=== PATIENT | female | born 1985 | race Hispanic/Latino ===

== ENCOUNTER 2020-05-23 10:45 | Emergency (ER) | payer OTHER, SELFPAY ==
--- OUTSIDE RECORDS SUMMARY | 2020-05-23 10:48 | XMS REPORT | Continuity of Care Document ---
:1985 Author Organization [facility] t Address [address] [place] [address] Care Team Providers Name Role Phone Lab, Fam Pob I Attending Clinician Unavailable Nurse, Carlo Pob I Attending Clinician Unavailable Problems This patient has no known problems. Allergies, Adverse Reactions, Alerts This patient has no known allergies or adverse reactions. Medications This patient has no known medications. Procedures This patient has no known procedures. Encounters Start End Encounter Admission Attending Care Care Encounter Source Date/Time Date/Time Type Type Clinicians Facility Department ID 2019-11-22 2019-11-22 Laboratory Lab, [facility] [id number] 14:37:19 14:57:19 Only Fam Pob I Health [id number] [place] [id number] Professio [phone] nal [address] 2019-11-22 2019-11-22 Letter Nurse, [facility] [id number] 00:00:00 00:00:00 (Out) Fam Pob I Health [id number] Surgical [id number] Specialti [id number] 370 [place] Results This patient has no known results.
--- NOTE | 2020-05-23 11:22 | EDPHYS ---
Physician Documentation [facility] Name: Claudette De La Rosa Age: 35 yrs Sex: Female : 1985 Arrival Date: 05/23/2020 Time: 10:48 Bed 20 Private MD: ED Physician Felipe Raygoza HPI: 05/23 11:19 This 35 yrs old Female presents to ER via Ambulatory with complaints of Tooth pm1 Infection. 11:19 The patient presents with pain. The problem is located in the lower right second molar. pm1 Onset: The symptoms/episode began/occurred many months. Duration: The symptoms are continuous. Associated signs and symptoms: Pertinent negatives: dysphagia, fever, inability to eat. Severity of symptoms: in the emergency department the symptoms are actually worse. Patient has been seen by her dentist and referred to [facility] for management of her tooth. Historical: - Allergies: 11:00 Latex, Natural Rubber; ss - Home Meds: 11:00 None [Active]; ss - PMHx: 11:00 None; ss - PSHx: 11:00 Cholecystectomy; breast augmentation; abdominoplasty; ; ss - Immunization history:: Adult Immunizations up to date. - Social history:: Smoking status: Patient denies any tobacco usage or history of. ROS: 11:19 Constitutional: Negative for fever, chills, and weight loss. pm1 11:19 Cardiovascular: Negative for chest pain, palpitations, and edema, Respiratory: Negative for shortness of breath, cough, wheezing, and pleuritic chest pain, Abdomen/GI: Negative for abdominal pain, nausea, vomiting, diarrhea, and constipation, MS/Extremity: Negative for injury and deformity, Skin: Negative for injury, rash, and discoloration. 11:19 Neuro: Negative for headache, weakness, numbness, tingling, and seizure. 11:19 ENT: Positive for dental pain, Negative for sore throat, difficulty swallowing, difficulty handling secretions. Exam: 11:19 Constitutional: This is a well developed, well nourished patient who is awake, alert, pm1 and in no acute distress. Head/Face: Normocephalic, atraumatic. 11:19 Neck: Trachea midline, no thyromegaly or masses palpated, and no cervical lymphadenopathy. Supple, full range of motion without nuchal rigidity, or vertebral point tenderness. No Meningismus. 11:19 Skin: Warm, dry with normal turgor. Normal color with no rashes, no lesions, and no evidence of cellulitis. MS/ Extremity: Pulses equal, no cyanosis. Neurovascular intact. Full, normal range of motion. 11:19 ENT: Posterior pharynx: is normal, no acute changes, Dental exam: dental caries, that is moderate, specifically in the lower right second molar (#31), gum swelling, not appreciated. 11:19 Cardiovascular: Exam negative for acute changes, Rate: normal, Rhythm: regular, Pulses: no pulse deficits are appreciated. 11:19 Respiratory: Exam negative for acute changes, respiratory distress, shortness of breath. 11:19 Neuro: Exam negative for acute changes, Orientation: is normal, Mentation: is normal, Motor: is normal, moves all fours. Vital Signs: 10:58 BP 139 / 78; Pulse 82; Resp 14; Temp 98.0(TE); Pulse Ox 100% on R/A; Weight 96.16 kg; ss Height 5 ft. 4 in. (162.56 cm); Pain 7/10; 10:58 Body Mass Index 36.39 (96.16 kg, 162.56 cm) ss MDM: 11:10 Patient medically screened. pm1 11:19 Data reviewed: vital signs. Counseling: I had a detailed discussion with the patient pm1 and/or guardian regarding: the historical points, exam findings, and any diagnostic results supporting the discharge/admit diagnosis, the need for outpatient follow up, for definitive care, a dentist, an oral maxilofacial specialist, to return to the emergency department if symptoms worsen or persist or if there are any questions or concerns that arise at home. Administered Medications: 11:26 Drug: traMADol 50 mg Route: PO; Disposition: 05/23/20 11:20 Discharged to Home. Impression: Dental pain. - Condition is Stable. - Discharge Instructions: Dental Pain. - Prescriptions for Augmentin 875- 125 mg Oral Tablet - take 1 tablet by ORAL route every 12 hours for 10 days; 20 tablet. Tramadol 50 mg Oral Tablet - take 1 tablet by ORAL route every 8 hours as needed; 12 tablet. - Medication Reconciliation Form, Thank You Letter, Antibiotic Education, Prescription Opioid Use, Work release form form. - Follow up: Emergency Department; When: As needed; Reason: Worsening of condition. Follow up: Private Physician; When: 2 - 3 days; Reason: Recheck today's complaints, Continuance of care, Re-evaluation by your physician. - Problem is new. - Symptoms have improved. Addendum: 05/24/2020 18:27 Co-signature as Attending Physician, Felipe Raygoza MD. m a2 Signatures: Nicole Edwards, RN RN Jhony Sepulveda NP PHOTOGRAMMETRIC TECH pm1 Felipe Raygoza MD MD ar2 Josi Mullins RN RN Corrections: (The following items were deleted from the chart) 05/23 11:41 11:20 05/23/2020 11:20 Discharged to Home. Impression: Dental pain. Condition is ah Stable. Forms are Medication Reconciliation Form, Thank You Letter, Antibiotic Education, Prescription Opioid Use. Follow up: Emergency Department; When: As needed; Reason: Worsening of condition. Follow up: Private Physician; When: 2 - 3 days; Reason: Recheck today's complaints, Continuance of care, Re-evaluation by your physician. Problem is new. Symptoms have improved. pm1
--- NOTE | 2020-05-23 11:22 | ER ---
Nurse's Notes [facility] Name: Claudette De La Rosa Age: 35 yrs Sex: Female : 1985 Arrival Date: 05/23/2020 Time: 10:48 Bed 20 Private MD: Diagnosis: Dental pain Presentation: 05/23 10:58 Chief complaint: Patient states: dental pain x 3 days. Coronavirus screen: Client ss denies travel out of the [place] in the last 14 days. Ebola Screen: Patient denies exposure to infectious person. Patient denies travel to an Ebola-affected area in the 21 days before illness onset. Initial Sepsis Screen: Does the patient meet any 2 criteria? No. Patient's initial sepsis screen is negative. Does the patient have a suspected source of infection? No. Patient's initial sepsis screen is negative. Risk Assessment: Do you want to hurt yourself or someone else? Patient reports no desire to harm self or others. Onset of symptoms was May 20, 2020. 10:58 Method Of Arrival: Ambulatory 10:58 Acuity: ROSHAN 4 ss Historical: - Allergies: 11:00 Latex, Natural Rubber; ss - Home Meds: 11:00 None [Active]; ss - PMHx: 11:00 None; ss - PSHx: 11:00 Cholecystectomy; breast augmentation; abdominoplasty; ; ss - Immunization history:: Adult Immunizations up to date. - Social history:: Smoking status: Patient denies any tobacco usage or history of. Screenin:29 Abuse screen: Denies threats or abuse. Nutritional screening: No deficits noted. Tuberculosis screening: No symptoms or risk factors identified. Fall Risk None identified. Assessment: 11:26 General: Appears uncomfortable, Behavior is calm, cooperative, appropriate for age. Pain: Complains of pain in lower right second molar Pain radiates to right ear Pain currently is 7 out of 10 on a pain scale. Quality of pain is described as aching, stabbing, piercing, Pain began 2-3 days ago. Neuro: Level of Consciousness is awake, alert, obeys commands, Oriented to person, place, time, situation, Appropriate for age. Cardiovascular: Heart tones S1 S2 present Capillary refill < 3 seconds Patient's skin is warm and dry. Respiratory: Airway is patent Respiratory effort is even, unlabored, Respiratory pattern is regular. GI: No signs and/or symptoms were reported involving the gastrointestinal system. EENT: Poor dentition noted. Reports pain when swallowing. Derm: Skin is intact, is healthy with good turgor, Skin is pink, warm \T\ dry. Vital Signs: 10:58 BP 139 / 78; Pulse 82; Resp 14; Temp 98.0(TE); Pulse Ox 100% on R/A; Weight 96.16 kg; Height 5 ft. 4 in. (162.56 cm); Pain 7/10; 10:58 Body Mass Index 36.39 (96.16 kg, 162.56 cm) ED Course: 10:48 Patient arrived in ED. mr 10:51 Jh[facility]ulved[facility] pm1 10:59 Triage completed. 11:00 Arm band placed on right wrist. 11:03 Josi Mullins, RN is Primary Nurse. 11:20 Felipe Raygoza MD is Attending Physician. pm1 11:29 Patient has correct armband on for positive identification. Bed in low position. 11:29 No provider procedures requiring assistance completed. Patient did not have IV access ah during this emergency room visit. Administered Medications: 11:26 Drug: traMADol 50 mg Route: PO; Outcome: 11:20 Discharge ordered by . pm1 11:41 Discharged to home ambulatory. 11:41 Condition: good 11:41 Discharge instructions given to patient, Instructed on discharge instructions, Demonstrated understanding of instructions, follow-up care, medications. 11:41 Patient left the ED. Signatures: Judith LeachashNicole RN RN Jhony Sepulveda NP CLOTH HAULER pm1 Josi Mullins RN RN
[2020-05-23] MEDS ORDERED: TRAMADOL HCL 50 MG TAB ONE (11:40)
[2020-05-23 11:49] VITALS: BP 139/78; TEMP 98; O2SAT 100
== END 2020-05-23 11:41 | disposition home or self-care (01) ==
LOC: ER 10:45
DX: K08.89 Other specified disorders of teeth and supporting structures (principal); Z91.040 Latex allergy status
CPT/HCPCS: 99283

== ENCOUNTER 2020-06-05 16:41 | Emergency (ER) | payer OTHER ==
[2020-06-05 17:21] LABS: Urine Blood NEGATIVE (NEG); Urine Glucose NEGATIVE (NEG); Urine Protein NEGATIVE (NEG); Urine Specific Gravity 1.025 (1.005-1.030)
[2020-06-05 17:49] LABS: Absolute Lymphocytes (CBC) 2.2 K/uL (0.7-4.9); Basophils % 0.2 % (0-1.3); Lymphocytes % 26.9 % (15.3-44.8); MPV 8.8 fL (7.6-11.3); RBC Red Blood Cell Count 4.26 M/uL (3.86-4.86)
[2020-06-05 18:23] LABS: BUN Blood Urea Nitrogen 9 mg/dL (7-18); Bicarbonate 23 mmol/L (21-32); Glucose Level 90 mg/dL (74-106); HCG, Quantitative 4743 mIU/mL (1-3); Potassium 3.3 mmol/L (3.5-5.1); Sodium Level 141 mmol/L (136-145)
[2020-06-05] MEDS ORDERED: POTASSIUM CL SA 10 MEQ TAB PO ONE (18:46)
--- NOTE | 2020-06-05 19:26 | ER ---
Nurse's Notes [facility] Name: Claudette De La Rosa Age: 35 yrs Sex: Female : 1985 Arrival Date: 06/05/2020 Time: 16:45 Bed 14 Private MD: Diagnosis: Abdominal and pelvic pain;Less than 8 weeks gestation of Presentation: 06/05 16:57 Chief complaint: Patient states: Approximately 6 weeks . Abd pain for 2 days. ll1 G5, P3. LMP:04/21. Coronavirus screen: Client denies travel out of the [place] in the last 14 days. At this time, the client does not indicate any symptoms associated with coronavirus-19. Ebola Screen: Patient denies travel to an Ebola-affected area in the 21 days before illness onset. Initial Sepsis Screen: Does the patient meet any 2 criteria? HR > 90 bpm. No. Patient's initial sepsis screen is negative. Does the patient have a suspected source of infection? Yes: Acute abdominal pain. Risk Assessment: Do you want to hurt yourself or someone else? Patient reports no desire to harm self or others. Onset of symptoms was June 04, 2020. 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 - Social history:: Smoking status: Patient denies any tobacco usage or history of. Screenin:18 Abuse screen: Denies threats or abuse. Nutritional screening: No deficits noted. vg1 Tuberculosis screening: No symptoms or risk factors identified. Fall Risk No fall in past 12 months (0 pts). No secondary diagnosis (0 pts). IV access (20 points). Ambulatory Aid- None/Bed Rest/Nurse Assist (0 pts). Gait- Normal/Bed Rest/Wheelchair (0 pts) Mental Status- Oriented to own ability (0 pts). Total Worrell Fall Scale indicates No Risk (0-24 pts). Assessment: 17:16 General: Appears in no apparent distress. comfortable, Behavior is calm, cooperative. vg1 Pain: Complains of pain in right lower quadrant Pain currently is 2 out of 10 on a pain scale. Quality of pain is described as sharp, Is intermittent. Neuro: Level of Consciousness is awake, alert, obeys commands, Oriented to person, place, time, situation. Cardiovascular: Patient's skin is warm and dry. Respiratory: Airway is patent Respiratory effort is even, unlabored. GI: Bowel sounds present X 4 quads. Abd is soft and non tender X 4 quads. GI: Reports diarrhea, Patient currently denies nausea, vomiting. : No signs and/or symptoms were reported regarding the genitourinary system. EENT: No signs and/or symptoms were reported regarding the EENT system. Derm: Skin is intact, is healthy with good turgor. Musculoskeletal: Circulation, motion, and sensation intact. 18:16 Reassessment: Patient appears in no apparent distress at this time. No changes from vg1 previously documented assessment. Patient and/or family updated on plan of care and expected duration. Pain level reassessed. Patient is alert, oriented x 3, equal unlabored respirations, skin warm/dry/pink. Vital Signs: 16:57 BP 146 / 85; Pulse 98; Resp 17; Temp 99.0; Pulse Ox 100% ; Weight 98.43 kg; Height 5 ll1 ft. 3 in. (160.02 cm); Pain 3/10; 17:18 BP 130 / 74; Pulse 98; Resp 16; Pulse Ox 100% on R/A; vg1 18:00 BP 117 / 69; Pulse 80; Resp 16; Pulse Ox 100% on R/A; vg1 16:57 Body Mass Index 38.44 (98.43 kg, 160.02 cm) ll1 ED Course: 16:45 Patient arrived in ED. mr 16:51 Yanet [facility] F[facility]-C [facility]. kb 16:51 Luis Miguel Cunningham MD is Attending Physician. kb 16:59 Triage completed. ll1 16:59 Arm band placed on Patient placed in an exam room, on a stretcher. ll1 17:12 Keisha Valdivia, LETICIA is Primary Nurse. vg1 17:12 Urine collected: clean catch specimen, clear, kajal colored. Patient maintains SpO2 jp3 saturation greater than 95% on room air. 17:18 Patient has correct armband on for positive identification. Bed in low position. Call vg1 light in reach. 17:33 Initial lab(s) drawn, by me, sent to lab. Inserted saline lock: 20 gauge in left dh3 antecubital area, using aseptic technique. Blood collected. 19:41 No provider procedures requiring assistance completed. IV discontinued, intact, vg1 bleeding controlled, No redness/swelling at site. Pressure dressing applied. 20:19 US Transvaginal Ob In Process Unspecified. EDMS Administered Medications: 18:34 Drug: Potassium Chloride 20 mEq Route: PO; vg1 19:30 Follow up: Response: No adverse reaction vg1 19:44 Follow up: Response: No adverse reaction vg1 Point of Care Testing: Urine : 17:12 hCG Reading: Positive; Control Reading: Positive; jp3 Outcome: 19:25 Discharge ordered by . kb 19:41 Discharged to home ambulatory. vg1 19:41 Condition: stable 19:41 Discharge instructions given to patient, Instructed on discharge instructions, follow up and referral plans. Demonstrated understanding of instructions, follow-up care. 19:41 Patient left the ED. vg1 Signatures: Dispatcher [employer] EDMS Yanet Evans, LEADERSHIP PROGRAM INTERNSkylaC LEADERSHIP PROGRAM INTERN-Dougie Judith Leach, Annita 3 Alfred Bowers 3 Keisha Valdivia, RN RN vg1 Edilia Adrian RN RN ll1
--- NOTE | 2020-06-05 19:26 | EDPHYS ---
Physician Documentation [facility] Name: Claudette De La Rosa Age: 35 yrs Sex: Female : 1985 Arrival Date: 06/05/2020 Time: 16:45 Bed 14 Private MD: RA Physician Luis Miguel Cunningham HPI: 06/05 18:27 This 35 yrs old Female presents to ER via Ambulatory with complaints of kb Abdominal Pain, 6wks . 18:29 The patient presents to the emergency department with abdominal pain, of the right kb lower quadrant. course: care: at a clinic, Leakage of Fluid: none appreciated, Ultrasound: the patient has not had an ultrasound, Risk/complications: no obvious risks or complications are appreciated. Previous pregnancies: the patient has never been . Associated signs and symptoms: Pertinent positives: abdominal pain, Pertinent negatives: chest pain, diarrhea, dysuria, fever, frequency, nausea, ruptured membranes, seizure, shortness of breath, vaginal bleeding, vaginal discharge, vomiting. The patient has not experienced similar symptoms in the past. The patient has not recently seen a physician. 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 - Social history:: Smoking status: Patient denies any tobacco usage or history of. ROS: 18:27 Constitutional: Negative for fever, chills, and weight loss, Cardiovascular: Negative kb for chest pain, palpitations, and edema, Respiratory: Negative for shortness of breath, cough, wheezing, and pleuritic chest pain, : Negative for injury, bleeding, discharge, and swelling, MS/Extremity: Negative for injury and deformity, Skin: Negative for injury, rash, and discoloration, Neuro: Negative for headache, weakness, numbness, tingling, and seizure. 18:27 Abdomen/GI: Positive for abdominal pain. Exam: 18:29 Constitutional: This is a well developed, well nourished patient who is awake, alert, kb and in no acute distress. Head/Face: Normocephalic, atraumatic. Chest/axilla: Normal chest wall appearance and motion. Nontender with no deformity. No lesions are appreciated. Cardiovascular: Regular rate and rhythm with a normal S1 and S2. No gallops, murmurs, or rubs. Normal PMI, no JVD. No pulse deficits. Respiratory: Lungs have equal breath sounds bilaterally, clear to auscultation and percussion. No rales, rhonchi or wheezes noted. No increased work of breathing, no retractions or nasal flaring. Abdomen/GI: Soft, non-tender, with normal bowel sounds. No distension or tympany. No guarding or rebound. No evidence of tenderness throughout. Skin: Warm, dry with normal turgor. Normal color with no rashes, no lesions, and no evidence of cellulitis. MS/ Extremity: Pulses equal, no cyanosis. Neurovascular intact. Full, normal range of motion. Neuro: Awake and alert, GCS 15, oriented to person, place, time, and situation. Cranial nerves II-XII grossly intact. Motor strength 5/5 in all extremities. Sensory grossly intact. Cerebellar exam normal. Normal gait. Vital Signs: 16:57 BP 146 / 85; Pulse 98; Resp 17; Temp 99.0; Pulse Ox 100% ; Weight 98.43 kg; Height 5 ll1 ft. 3 in. (160.02 cm); Pain 3/10; 17:18 BP 130 / 74; Pulse 98; Resp 16; Pulse Ox 100% on R/A; vg1 18:00 BP 117 / 69; Pulse 80; Resp 16; Pulse Ox 100% on R/A; vg1 16:57 Body Mass Index 38.44 (98.43 kg, 160.02 cm) ll1 MDM: 16:55 Patient medically screened. kb 18:27 Data reviewed: vital signs, nurses notes. Data interpreted: Pulse oximetry: on room air kb is 100 %. Interpretation: normal. 18:29 Counseling: I had a detailed discussion with the patient and/or guardian regarding: the kb historical points, exam findings, and any diagnostic results supporting the discharge/admit diagnosis, lab results, radiology results, the need for outpatient follow up, an OB/Gyne specialist, to return to the emergency department if symptoms worsen or persist or if there are any questions or concerns that arise at home. 06/05 17:00 Order name: Quantitative Hcg kb 06/05 17:00 Order name: Abo/rh Typing; Complete Time: 18:41 kb 06/05 17:00 Order name: Basic Metabolic Panel; Complete Time: 18:23 kb 06/05 17:00 Order name: CBC with Diff; Complete Time: 17:59 kb 06/05 17:00 Order name: HCG, Quantitative; Complete Time: 18:23 EDMS 06/05 17:20 Order name: Urine Dipstick--Ancillary (enter results) eb 06/05 16:59 Order name: Urine Test (obtain specimen); Complete Time: 17:13 kb 06/05 17:00 Order name: IV Saline Lock; Complete Time: 17:38 kb 06/05 17:00 Order name: Labs collected and sent; Complete Time: 17:38 kb 06/05 17:20 Order name: Urine --Ancillary (enter results) eb 06/05 17:20 Order name: Urine Dipstick-Ancillary; Complete Time: 17:29 EDMS 06/05 17:21 Order name: Urine --Ancillary; Complete Time: 17:29 EDMS 06/05 18:00 Order name: US Transvaginal Ob kb 06/05 17:00 Order name: NPO; Complete Time: 17:13 kb 06/05 17:00 Order name: Urine Dipstick-Ancillary (obtain specimen); Complete Time: 17:13 kb Administered Medications: 18:34 Drug: Potassium Chloride 20 mEq Route: PO; vg1 19:30 Follow up: Response: No adverse reaction vg1 19:44 Follow up: Response: No adverse reaction vg1 Point of Care Testing: Urine : 17:12 hCG Reading: Positive; Control Reading: Positive; jp3 Disposition: 06/06 14:41 Co-signature as Attending Physician, Luis Miguel Cunningham MD I agree with the assessment and tatum plan of care. Disposition: 06/05/20 19:25 Discharged to Home. Impression: Abdominal and pelvic pain, Less than 8 weeks gestation of . - Condition is Stable. - Discharge Instructions: First Trimester of , Rsor-vp-Niwl. - Medication Reconciliation Form, Thank You Letter, Antibiotic Education, Prescription Opioid Use form. - Follow up: Emergency Department; When: As needed; Reason: Worsening of condition. Follow up: Private Physician; When: 2 - 3 days; Reason: Recheck today's complaints, Continuance of care, Re-evaluation by your physician. Signatures: Dispatcher [employer] Yanet Vallecillo, LORENZO BROOKS-Luis Miguel Mcclure MD MD cha Garcia, Victoria, RN RN vg1 Edilia Adrian RN RN ll1 Corrections: (The following items were deleted from the chart) 06/05 19:41 19:25 06/05/2020 19:25 Discharged to Home. Impression: Abdominal and pelvic pain; Less vg1 than 8 weeks gestation of . Condition is Stable. Forms are Medication Reconciliation Form, Thank You Letter, Antibiotic Education, Prescription Opioid Use. Follow up: Emergency Department; When: As needed; Reason: Worsening of condition. Follow up: Private Physician; When: 2 - 3 days; Reason: Recheck today's complaints, Continuance of care, Re-evaluation by your physician. kb
[2020-06-05 19:49] VITALS: TEMP 99; O2SAT 100
[2020-06-05 19:51] VITALS: BP 117/69
--- NOTE | 2020-06-05 20:34 | RAD REPORT ---
EXAM DESCRIPTION: US - Transvaginal OB - 06/05/2020 8:19 pm CLINICAL HISTORY: ABD CRAMPING, COMPARISON: OBSTETRICAL COMPLETE dated 03/22/2012 FINDINGS: A single gestational sac is seen within the uterus. The shape of the sac is within normal limits for gestational age. The sac is quite small with mean sac diameter of 9 mm correlating to 5 we eks 5 days gestational age. No yolk sac or embryo is detected. The maternal adnexa and ovaries are within normal limits. Normal Doppler blood flow was demonstrated to both ovaries. IMPRESSION: Small gestational sac is present in the uterus likely indicating IUP. No yolk sac or emb suhas is yet detected. Recommend correlation with HCG levels on a serial basis as well as follow-up pel ellis ultrasound in 10-12 days.
== END 2020-06-05 19:41 | disposition home or self-care (01) ==
LOC: ER 16:41
DX: O26.891 Other specified pregnancy related conditions, first trimester (principal); Z3A.01 Less than 8 weeks gestation of pregnancy; Z98.82 Breast implant status; Z91.040 Latex allergy status; Z91.048 Other nonmedicinal substance allergy status
CPT/HCPCS: 36415; 76817; 80048; 81003; 81025; 84702; 85025; 86900; 86901; 99284

== ENCOUNTER 2022-12-21 16:14 | Emergency (ER) | payer OTHER ==
[2022-12-21 16:46] LABS: Specific Gravity 1.024 (1.005-1.030)
[2022-12-21 16:50] LABS: Specific Gravity 1.024 (1.005-1.030); Urine Bacteria None Seen /HPF (<20); Urine Bilirubin NEGATIVE (Negative); Urine Blood Negative (Negative); Urine Clarity Clear (Clear); Urine Color Light-Yellow (Yellow); Urine Glucose NEGATIVE (Negative); Urine Mucus 1+ /HPF (None Seen); Urine Protein 1+ (Negative); Urine RBC <5 /HPF (None Seen); Urine Urobilinogen Normal (Normal); Urine pH 5.5 (5.0-7.0)
--- OUTSIDE RECORDS SUMMARY | 2022-12-21 16:50 | XMS REPORT | Continuity of Care Document ---
:1985 Author Organization [facility] t Address [address] [facility] [address] [place] [address] Care Team Providers Name Role Phone PCP, PATIENT DOES NOT HAVE A Primary Care Physician Unavaila binu Doctor Unassigned, [place] Attending Clinician Unavailable DEE DEE VILLALPANDO Attending Clinician Unavailable Dee Dee Villalpando MD Attending Clinician Unknown, Attending Attending Clinician Unavailable HILDA STANTON Attending Clinician Unavailable Hilda Stanton MD Attending Clinician FAITH JEFFERSON Attending Clinician Unavailable Amanda Alfonso Attending Clinician AMANDA HERNANDEZ Attending Clinician Unavailable RAMY GONZALES Attending Clinician Unavailable Ramy Gonzales PA-C Attending Clinician STONE MARRERO Attending Clinician Unavailable JACKELYN BENTON Attending Clinician Unavailable Sohail Ramey DO Attending Clinician Jackelyn [place] MD Attending Clinician 2, [facility] Attending Clinician Unavailable Steve Rivas MD Attending Clinician STEVE RIVAS Attending Clinician Unavailable Kathy Dutton Attending Clinician SCOTT DAVID Attending Clinician Unavailable Scott David MD Attending Clinician [phone] UNKNOWN, ATTENDING Attending Clinician [facility] Attending Clinician Unavailable Deidra Resendez Attending Clinician Shashi Joshi Attending Clinician DEIDRA SCOTT Attending Clinician Unavailable KATHY LANTIGUA Attending Clinician Unavailable Tarun Alvarez PA-C Attending Clinician Nurse, [facility] Attending Clinician Unavailable Jerod Oliva MD Attending Clinician RASHAWN GRIFFIN Attending Clinician Unavailable JEROD OLIVA Attending Clinician Unavailable DENISE ARELLANO Attending Clinician Unavailable Lab, [facility]ob I Attending Clinician Unavailable Denise Mishra Attending Clinician Nurse, [facility] Pob I Attending Clinician Unavailable JACKELYN BENTON Admitting Clinician Unavailable Jackelyn [place] MD Admitting Clinician STEVE RIVAS Admitting Clinician Unavailable HILDA STANTON Admitting Clinician Unavailable Payers Payer Name Policy Type Policy Number Effective Date Expiration Date S 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 00:00: [address] Branch Obesity Obesity Disease Active Univers (BMI (BMI 3-07 ity of 30-39.9) 30-39.9) 00:00: [address] Branch Overdose Overdose Disease Active 2022-0 Unive rs 3-07 ity of 00:00: [place] 00 Medical Branch Hypokalemi Hypokalemi Disease Active U nivers a a 3-07 ity of 00:00: [place] [facility] Depression Depression Disease Active U nivers 3-07 ity of 00:00: [place] [facility] Hepatitis Hepatitis Disease Active Uni vers C virus C virus 3- [place] without 00 [place] hepatic hepatic Branch coma, coma, unspecifie unspecifie d d chronicity chronicity Allergies, Adverse Reactions, Alerts Allergy Allergy Status Severity Reaction(s) Onset Inactive Treating Comm ents Source Name Type Date Date Clinician Latex Propensi Active Rash Univers ty to 2-10 ity of adverse 00:00: [place] reaction 00 Medical s Branch LATEX DRUG Active Rash Univers INGREDI 2-10 ity of 00:00: [place] 00 Medical [place] Social History Social Habit Start Date Stop Date Quantity Comments Source Exposure to 2022-09-23 2022-10-03 Not sure [facility] SARS-CoV-2 00:00:00 07:09:00 [facility] (event) [place] Alcohol intake 2022-10-03 2022-10-03 Ex-drinker [facility] 00:00:00 00:00:00 (finding) [facility] Tobacco use and 2022-08-17 2022-08-17 Former smokeless Uni versity of exposure 00:00:00 00:00:00 tobacco user [facility] [place] Tobacco Comment 2022-08-17 2022-08-17 reports being a Univ ersity of 00:00:00 00:00:00 social smoker. [facility] not daily Branch Education 2021-06-27 2021-06-27 21 University of 00:00:00 00:00:00 [place] [facility] History of 2020-03-23 Cigarette Smoker Universi ty of tobacco use 00:00:00 [facility] Sex [birth year] Universit y of 00:00:00 00:00:00 [facility] Smoking Status Start Date Stop Date Source Ex-smoker 2022-08-17 00:00:00 2022-08-17 00:00:00 Universi ty of [place] [facility] Medications Ordered Filled Start Stop Current Ordering Indication Dosage Frequency Signature Comments Components Source Medication Medication Date Date Medication? Clinician (SIG) Name Name benzonatate Yes [id number] 200mg Take 2 Univers 100 mg 6-13 capsules ity of capsule 00:00: by mouth [place] 00 every 8 Medical (eight) Branch hours as needed for Cough. benzonatate Yes [id number] 200mg Take 2 Univers 100 mg 6-13 capsules ity of capsule 00:00: by mouth [place] 00 every 8 Medical (eight) Branch hours as needed for Cough. benzonatate Yes [id number] 200mg Take 2 Univers 100 mg 6-13 capsules ity of capsule 00:00: by mouth [place] 00 every 8 Medical (eight) Branch hours as needed for Cough. amoxicillin 2022- Yes [id number] 1{tbl} Take 1 Univers -clavulanat 6-13 06-21 tablet by it y of e 00:00: 04:59 mouth in [place] (AUGMENTIN) 00 :00 the Medical 875-125 mg morning Branch per tablet and 1 tablet in the evening. Do all this for 7 days. amoxicillin 2022- Yes [id number] 1{tbl} Take 1 Univers -clavulanat 6-13 06-21 tablet by it y of e 00:00: 04:59 mouth in [place] (AUGMENTIN) 00 :00 the Medical 875-125 mg morning Branch per tablet and 1 tablet in the evening. Do all this for 7 days. EULOGIO, 0 Yes Univer s 3-0.02 mg 5-19 ity of per tablet 00:00: Medical Branch LORYNA, 0 Yes Univer s 3-0.02 mg 5-19 ity of per tablet 00:00: Medical Branch LORYNA, 0 Yes Univer s 3-0.02 mg 5-19 ity of per tablet 00:00: Medical Branch RADHA tablet 2022-0 Yes Univer s 5-08 ity of 00:00: Medical Branch RADHA tablet 2022-0 Yes Univer s 5-08 ity of 00:00: Medical Branch RADHA tablet 0 Yes Univer s 5-08 ity of 00:00: [place] 00 Medical Branch sulfamethox 3-0 Yes [id number] 1{tbl} Take 1 Univers azole-trime 5-02 tablet by ity of thoprim 00:00: mouth in [place] (BACTRIM 00 the Medical DS) 800-160 morning Branc h mg per and 1 tablet tablet in the evening. sulfamethox 3-0 Yes [id number] 1{tbl} Take 1 Univers azole-trime 5-02 tablet by ity of thoprim 00:00: mouth in [place] (BACTRIM 00 the Medical DS) 800-160 morning Branc h mg per and 1 tablet tablet in the evening. sulfamethox 2023-0 Yes [id number] 1{tbl} Take 1 Univers azole-trime 5-02 tablet by ity of thoprim 00:00: mouth in [place] (BACTRIM 00 the Medical DS) 800-160 morning Branc h mg per and 1 tablet tablet in the evening. sulfamethox 2022-0 Yes [id number] 1{tbl} Take 1 Univers azole-trime 5-02 tablet by ity of thoprim 00:00: mouth in [place] (BACTRIM 00 the Medical DS) 800-160 morning Branc h mg per and 1 tablet tablet in the evening. sulfamethox 2021- No [id number] 1{tbl} Take 1 Univers azole-trime 6-17 06-25 tablet by it y of thoprim 00:00: 04:59 mouth 2 [place] (BACTRIM 00 :00 (two) Medical DS) 800-160 times Branch mg per daily for tablet 7 days. QUEtiapine 2021- No [id number] 25mg Take 1 Univers 25 mg 3-11 04-11 tablet by ity of tablet 00:00: 04:59 mouth at [place] 00 :00 bedtime Medical for 30 Branch days. Venlafaxine 2021-2021- No [id number] 75mg Take 1 Univers 75 mg 3-11 04-11 tablet by ity of tablet 00:00: 04:59 mouth [place] 00 :00 daily for Medical 30 days. Branch QUEtiapine 2021- No [id number] 25mg Take 1 Univers 25 mg 3-11 04-11 tablet by ity of tablet 00:00: 04:59 mouth at [place] 00 :00 bedtime Medical for 30 Branch days. Venlafaxine 2021- No [id number] 75mg Take 1 Univers 75 mg 3-11 04-11 tablet by ity of tablet 00:00: 04:59 mouth [place] 00 :00 daily for Medical 30 days. Branch acetaminoph 2020-04 Yes [id number] 650mg Take 1 Univers en (TYLENOL 0-16 tablet by ity of 8 HOUR) 650 00:00: mouth [place] mg CR 00 every 8 Medical tablet (eight) Branch hours as needed for Pain. ibuprofen 2020-04 Yes [id number] 800mg Take 1 U nivers 800 mg 0-16 tablet by ity of tablet 00:00: mouth [place] 00 every 6 Medical (six) Branch hours as needed for Pain (scale 1-3). acetaminoph 2020-04 Yes [id number] 650mg Take 1 Univers en (TYLENOL 0-16 tablet by ity of 8 HOUR) 650 00:00: mouth [place] mg CR 00 every 8 Medical tablet (eight) Branch hours as needed for Pain. ibuprofen 2020-04 Yes [id number] 800mg Take 1 U nivers 800 mg 0-16 tablet by ity of tablet 00:00: mouth [place] 00 every 6 Medical (six) Branch hours as needed for Pain (scale 1-3). acetaminoph 2020-04 Yes [id number] 650mg Take 1 Univers en (TYLENOL 0-16 tablet by ity of 8 HOUR) 650 00:00: mouth [place] mg CR 00 every 8 Medical tablet (eight) Branch hours as needed for Pain. ibuprofen 2020-04 Yes [id number] 800mg Take 1 U nivers 800 mg 0-16 tablet by ity of tablet 00:00: mouth [place] 00 every 6 Medical (six) Branch hours as needed for Pain (scale 1-3). acetaminoph 2020-04 Yes [id number] 650mg Take 1 Univers en (TYLENOL 0-16 tablet by ity of 8 HOUR) 650 00:00: mouth [place] mg CR 00 every 8 Medical tablet (eight) Branch hours as needed for Pain. ibuprofen 2020-04 Yes [id number] 800mg Take 1 U nivers 800 mg 0-16 tablet by ity of tablet 00:00: mouth [place] 00 every 6 Medical (six) Branch hours as needed for Pain (scale 1-3). acetaminoph 2020-04 Yes [id number] 650mg Take 1 Univers en (TYLENOL 0-16 tablet by ity of 8 HOUR) 650 00:00: mouth [place] mg CR 00 every 8 Medical tablet (eight) Branch hours as needed for Pain. ibuprofen 2020-04 Yes [id number] 800mg Take 1 U nivers 800 mg 0-16 tablet by ity of tablet 00:00: mouth [place] 00 every 6 Medical (six) Branch hours as needed for Pain (scale 1-3). acetaminoph 2020-04 Yes [id number] 650mg Take 1 Univers en (TYLENOL 0-16 tablet by ity of 8 HOUR) 650 00:00: mouth [place] mg CR 00 every 8 Medical tablet (eight) Branch hours as needed for Pain. ibuprofen 2020-04 Yes [id number] 800mg Take 1 U nivers 800 mg 0-16 tablet by ity of tablet 00:00: mouth [place] 00 every 6 Medical (six) Branch hours as needed for Pain (scale 1-3). acetaminoph 2020-04 Yes [id number] 650mg Take 1 Univers en (TYLENOL 0-16 tablet by ity of 8 HOUR) 650 00:00: mouth [place] mg CR 00 every 8 Medical tablet (eight) Branch hours as needed for Pain. ibuprofen 2020-04 Yes [id number] 800mg Take 1 U nivers 800 mg 0-16 tablet by ity of tablet 00:00: mouth [place] 00 every 6 Medical (six) Branch hours as needed for Pain (scale 1-3). acetaminoph 2020-04 Yes [id number] 650mg Take 1 Univers en (TYLENOL 0-16 tablet by ity of 8 HOUR) 650 00:00: mouth [place] mg CR 00 every 8 Medical tablet (eight) Branch hours as needed for Pain. ibuprofen 2020-04 Yes [id number] 800mg Take 1 U nivers 800 mg 0-16 tablet by ity of tablet 00:00: mouth [place] 00 every 6 Medical (six) Branch hours as needed for Pain (scale 1-3). acetaminoph 2020-04 Yes [id number] 650mg Take 1 Univers en (TYLENOL 0-16 tablet by ity of 8 HOUR) 650 00:00: mouth [place] mg CR 00 every 8 Medical tablet (eight) Branch hours as needed for Pain. ibuprofen 2020-04 Yes [id number] 800mg Take 1 U nivers 800 mg 0-16 tablet by ity of tablet 00:00: mouth [place] 00 every 6 Medical (six) Branch hours as needed for Pain (scale 1-3). acetaminoph 2020-04 Yes [id number] 650mg Take 1 Univers en (TYLENOL 0-16 tablet by ity of 8 HOUR) 650 00:00: mouth [place] mg CR 00 every 8 Medical tablet (eight) Branch hours as needed for Pain. ibuprofen 2020-04 Yes [id number] 800mg Take 1 U nivers 800 mg 0-16 tablet by ity of tablet 00:00: mouth [place] 00 every 6 Medical (six) Branch hours as needed for Pain (scale 1-3). acetaminoph 2020-04 Yes [id number] 650mg Take 1 Univers en (TYLENOL 0-16 tablet by ity of 8 HOUR) 650 00:00: mouth [place] mg CR 00 every 8 Medical tablet (eight) Branch hours as needed for Pain. ibuprofen 2020-04 Yes [id number] 800mg Take 1 U nivers 800 mg 0-16 tablet by ity of tablet 00:00: mouth [place] 00 every 6 Medical (six) Branch hours as needed for Pain (scale 1-3). acetaminoph 2020-04 Yes [id number] 650mg Take 1 Univers en (TYLENOL 0-16 tablet by ity of 8 HOUR) 650 00:00: mouth [place] mg CR 00 every 8 Medical tablet (eight) Branch hours as needed for Pain. ibuprofen 2020-04 Yes [id number] 800mg Take 1 U nivers 800 mg 0-16 tablet by ity of tablet 00:00: mouth [place] 00 every 6 Medical (six) Branch hours as needed for Pain (scale 1-3). acetaminoph 2020-04 Yes [id number] 650mg Take 1 Univers en (TYLENOL 0-16 tablet by ity of 8 HOUR) 650 00:00: mouth [place] mg CR 00 every 8 Medical tablet (eight) Branch hours as needed for Pain. ibuprofen 2020-04 Yes [id number] 800mg Take 1 U nivers 800 mg 0-16 tablet by ity of tablet 00:00: mouth [place] 00 every 6 Medical (six) Branch hours as needed for Pain (scale 1-3). acetaminoph 2020-04 Yes [id number] 650mg Take 1 Univers en (TYLENOL 0-16 tablet by ity of 8 HOUR) 650 00:00: mouth [place] mg CR 00 every 8 Medical tablet (eight) Branch hours as needed for Pain. ibuprofen 2020-04 Yes [id number] 800mg Take 1 U nivers 800 mg 0-16 tablet by ity of tablet 00:00: mouth [place] 00 every 6 Medical (six) Branch hours as needed for Pain (scale 1-3). acetaminoph 2020-04 Yes [id number] 650mg Take 1 Univers en (TYLENOL 0-16 tablet by ity of 8 HOUR) 650 00:00: mouth [place] mg CR 00 every 8 Medical tablet (eight) Branch hours as needed for Pain. ibuprofen 2020-04 Yes [id number] 800mg Take 1 U nivers 800 mg 0-16 tablet by ity of tablet 00:00: mouth [place] 00 every 6 Medical (six) Branch hours as needed for Pain (scale 1-3). acetaminoph 2020-04 Yes [id number] 650mg Take 1 Univers en (TYLENOL 0-16 tablet by ity of 8 HOUR) 650 00:00: mouth [place] mg CR 00 every 8 Medical tablet (eight) Branch hours as needed for Pain. ibuprofen 2020-04 Yes [id number] 800mg Take 1 U nivers 800 mg 0-16 tablet by ity of tablet 00:00: mouth [place] 00 every 6 Medical (six) Branch hours as needed for Pain (scale 1-3). acetaminoph 2020-04 Yes [id number] 650mg Take 1 Univers en (TYLENOL 0-16 tablet by ity of 8 HOUR) 650 00:00: mouth [place] mg CR 00 every 8 Medical tablet (eight) Branch hours as needed for Pain. ibuprofen 2020-04 Yes [id number] 800mg Take 1 U nivers 800 mg 0-16 tablet by ity of tablet 00:00: mouth [place] 00 every 6 Medical (six) Branch hours as needed for Pain (scale 1-3). azelastine Yes [id number] 1{spray Use 1 Univers 137 mcg 7-29 } [facility] in ity of (0.1 %) 00:00: each [place] nasal spray 00 nostril 2 Med ical (two) Branch times daily. Use in each nostril as directed azelastine 2020-0 Yes [id number] 1{spray Use 1 Univers 137 mcg 7-29 } [facility] in ity of (0.1 %) 00:00: each [place] nasal spray 00 nostril 2 Med ical (two) Branch times daily. Use in each nostril as directed azelastine 2020-0 Yes [id number] 1{spray Use 1 Univers 137 mcg 7-29 } [facility] in ity of (0.1 %) 00:00: each [place] nasal spray 00 nostril 2 Med ical (two) Branch times daily. Use in each nostril as directed azelastine 2020-0 Yes [id number] 1{spray Use 1 Univers 137 mcg 7-29 } [facility] in ity of (0.1 %) 00:00: each [place] nasal spray 00 nostril 2 Med ical (two) Branch times daily. Use in each nostril as directed azelastine 2020-0 Yes [id number] 1{spray Use 1 Univers 137 mcg 7-29 } [facility] in ity of (0.1 %) 00:00: each [place] nasal spray 00 nostril 2 Med ical (two) Branch times daily. Use in each nostril as directed azelastine 2020-0 Yes [id number] 1{spray Use 1 Univers 137 mcg 7-29 } [facility] in ity of (0.1 %) 00:00: each [place] nasal spray 00 nostril 2 Med ical (two) Branch times daily. Use in each nostril as directed azelastine 2020-0 Yes [id number] 1{spray Use 1 Univers 137 mcg 7-29 } [facility] in ity of (0.1 %) 00:00: each [place] nasal spray 00 nostril 2 Med ical (two) Branch times daily. Use in each nostril as directed azelastine 202-0 Yes [id number] 1{spray Use 1 Univers 137 mcg 7-29 } [facility] in ity of (0.1 %) 00:00: each [place] nasal spray 00 nostril 2 Med ical (two) Branch times daily. Use in each nostril as directed azelastine 2020-0 Yes [id number] 1{spray Use 1 Univers 137 mcg 7-29 } [facility] in ity of (0.1 %) 00:00: each [place] nasal spray 00 nostril 2 Med ical (two) Branch times daily. Use in each nostril as directed azelastine 2020-0 Yes [id number] 1{spray Use 1 Univers 137 mcg 7-29 } [facility] in ity of (0.1 %) 00:00: each [place] nasal spray 00 nostril 2 Med ical (two) Branch times daily. Use in each nostril as directed azelastine 2020-0 Yes [id number] 1{spray Use 1 Univers 137 mcg 7-29 } [facility] in ity of (0.1 %) 00:00: each [place] nasal spray 00 nostril 2 Med ical (two) Branch times daily. Use in each nostril as directed azelastine 2020-0 Yes [id number] 1{spray Use 1 Univers 137 mcg 7-29 } [facility] in ity of (0.1 %) 00:00: each [place] nasal spray 00 nostril 2 Med ical (two) Branch times daily. Use in each nostril as directed azelastine 2020-0 Yes [id number] 1{spray Use 1 Univers 137 mcg 7-29 } [facility] in ity of (0.1 %) 00:00: each [place] nasal spray 00 nostril 2 Med ical (two) Branch times daily. Use in each nostril as directed azelastine 2020-0 Yes [id number] 1{spray Use 1 Univers 137 mcg 7-29 } [facility] in ity of (0.1 %) 00:00: each [place] nasal spray 00 nostril 2 Med ical (two) Branch times daily. Use in each nostril as directed azelastine 2020-0 Yes [id number] 1{spray Use 1 Univers 137 mcg 7-29 } [facility] in ity of (0.1 %) 00:00: each [place] nasal spray 00 nostril 2 Med ical (two) Branch times daily. Use in each nostril as directed azelastine 2020-0 Yes [id number] 1{spray Use 1 Univers 137 mcg 7-29 } [facility] in ity of (0.1 %) 00:00: each [place] nasal spray 00 nostril 2 Med ical (two) Branch times daily. Use in each nostril as directed azelastine Yes [id number] 1{spray Use 1 Univers 137 mcg 7-29 } [facility] in ity of (0.1 %) 00:00: each [place] nasal spray 00 nostril 2 Med ical (two) Branch times daily. Use in each nostril as directed azelastine Yes [id number] 1{spray Use 1 Univers 137 mcg 7-29 } [facility] in ity of (0.1 %) 00:00: each [place] nasal spray 00 nostril 2 Med ical (two) Branch times daily. Use in each nostril as directed azelastine Yes [id number] 1{spray Use 1 Univers 137 mcg 7-29 } [facility] in ity of (0.1 %) 00:00: each [place] nasal spray 00 nostril 2 Med ical (two) Branch times daily. Use in each nostril as directed Yes [id number] 1{capsu Take 1 Univers 25-iron-fol 3-10 le} capsule by it y of ate 6-dha 00:00: mouth [place] 30 mg 00 daily. Medical iron-1mg Branch -200 mg Cap Yes [id number] 1{capsu Take 1 Univers 25-iron-fol 3-10 le} capsule by it y of ate 6-dha 00:00: mouth [place] 30 mg 00 daily. Medical iron-1mg Branch -200 mg Cap Yes [id number] 1{capsu Take 1 Univers 25-iron-fol 3-10 le} capsule by it y of ate 6-dha 00:00: mouth [place] 30 mg 00 daily. Medical iron-1mg Branch -200 mg Cap Yes [id number] 1{capsu Take 1 Univers 25-iron-fol 3-10 le} capsule by it y of ate 6-dha 00:00: mouth [place] 30 mg 00 daily. Medical iron-1mg Branch -200 mg Cap Yes [id number] 1{capsu Take 1 Univers 25-iron-fol 3-10 le} capsule by it y of ate 6-dha 00:00: mouth [place] 30 mg 00 daily. Medical iron-1mg Branch -200 mg Cap 2021-0 Yes [id number] 1{capsu Take 1 Univers 25-iron-fol 3-10 le} capsule by it y of ate 6-dha 00:00: mouth [place] 30 mg 00 daily. Medical iron-1mg Branch -200 mg Cap 2020-0 Yes [id number] 1{capsu Take 1 Univers 25-iron-fol 3-10 le} capsule by it y of ate 6-dha 00:00: mouth [place] 30 mg 00 daily. Medical iron-1mg Branch -200 mg Cap Yes [id number] 1{capsu Take 1 Univers 25-iron-fol 3-10 le} capsule by it y of ate 6-dha 00:00: mouth [place] 30 mg 00 daily. Medical iron-1mg Branch -200 mg Cap Yes [id number] 1{capsu Take 1 Univers 25-iron-fol 3-10 le} capsule by it y of ate 6-dha 00:00: mouth [place] 30 mg 00 daily. Medical iron-1mg Branch -200 mg Cap Yes [id number] 1{capsu Take 1 Univers 25-iron-fol 3-10 le} capsule by it y of ate 6-dha 00:00: mouth [place] 30 mg 00 daily. Medical iron-1mg Branch -200 mg Cap Yes [id number] 1{capsu Take 1 Univers 25-iron-fol 3-10 le} capsule by it y of ate 6-dha 00:00: mouth [place] 30 mg 00 daily. Medical iron-1mg Branch -200 mg Cap Yes [id number] 1{capsu Take 1 Univers 25-iron-fol 3-10 le} capsule by it y of ate 6-dha 00:00: mouth [place] 30 mg 00 daily. Medical iron-1mg Branch -200 mg Cap 0 Yes [id number] 1{capsu Take 1 Univers 25-iron-fol 3-10 le} capsule by it y of ate 6-dha 00:00: mouth [place] 30 mg 00 daily. Medical iron-1mg Branch -200 mg Cap 0 Yes [id number] 1{capsu Take 1 Univers 25-iron-fol 3-10 le} capsule by it y of ate 6-dha 00:00: mouth [place] 30 mg 00 daily. Medical iron-1mg Branch -200 mg Cap Yes [id number] 1{capsu Take 1 Univers 25-iron-fol 3-10 le} capsule by it y of ate 6-dha 00:00: mouth [place] 30 mg 00 daily. Medical iron-1mg Branch -200 mg Cap Yes [id number] 1{capsu Take 1 Univers 25-iron-fol 3-10 le} capsule by it y of ate 6-dha 00:00: mouth [place] 30 mg 00 daily. Medical iron-1mg Branch -200 mg Cap Yes [id number] 1{capsu Take 1 Univers 25-iron-fol 3-10 le} capsule by it y of ate 6-dha 00:00: mouth [place] 30 mg 00 daily. Medical iron-1mg Branch -200 mg Cap Yes [id number] 1{capsu Take 1 Univers 25-iron-fol 3-10 le} capsule by it y of ate 6-dha 00:00: mouth [place] 30 mg 00 daily. Medical iron-1mg Branch -200 mg Cap Yes [id number] 1{capsu Take 1 Univers 25-iron-fol 3-10 le} capsule by it y of ate 6-dha 00:00: mouth [place] 30 mg 00 daily. Medical iron-1mg Branch -200 mg Cap multivitami Yes Univer s n 1-01 ity of no.44/iron/ 00:00: [place] FA/dha 00 Medical (PRENATE Branch MINI ORAL) multivitami Yes Univer s n 1-01 ity of no.44/iron/ 00:00: [place] FA/dha 00 Medical (PRENATE Branch MINI ORAL) multivitami Yes Univer s n 1-01 ity of no.44/iron/ 00:00: [place] FA/dha 00 Medical (PRENATE Branch MINI ORAL) multivitami Yes Univer s n 1-01 ity of no.44/iron/ 00:00: [place] FA/dha 00 Medical (PRENATE Branch MINI ORAL) multivitami Yes Univer s n 1-01 ity of no.44/iron/ 00:00: [place] FA/dha 00 Medical (PRENATE Branch MINI ORAL) multivitami Yes Univer s n 1-01 ity of no.44/iron/ 00:00: [place] FA/dha 00 Medical (PRENATE Branch MINI ORAL) multivitami 0 Yes Univer s n 1-01 ity of no.44/iron/ 00:00: [place] FA/dha 00 Medical (PRENATE Branch MINI ORAL) multivitami 0 Yes Univer s n 1-01 ity of no.44/iron/ 00:00: [place] FA/dha 00 Medical (PRENATE Branch MINI ORAL) multivitami 0 Yes Univer s n 1-01 ity of no.44/iron/ 00:00: [place] FA/dha 00 Medical (PRENATE Branch MINI ORAL) multivitami 0 Yes Univer s n 1-01 ity of no.44/iron/ 00:00: [place] FA/dha 00 Medical (PRENATE Branch MINI ORAL) multivitami 0 Yes Univer s n 1-01 ity of no.44/iron/ 00:00: [place] FA/dha 00 Medical (PRENATE Branch MINI ORAL) multivitami 0 Yes Univer s n 1-01 ity of no.44/iron/ 00:00: [place] FA/dha 00 Medical (PRENATE Branch MINI ORAL) multivitami 0 Yes Univer s n 1-01 ity of no.44/iron/ 00:00: [place] FA/dha 00 Medical (PRENATE Branch MINI ORAL) multivitami 0 Yes Univer s n 1-01 ity of no.44/iron/ 00:00: [place] FA/dha 00 Medical (PRENATE Branch MINI ORAL) multivitami 0 Yes Univer s n 1-01 ity of no.44/iron/ 00:00: [place] FA/dha 00 Medical (PRENATE Branch MINI ORAL) multivitami 0 Yes Univer s n 1-01 ity of no.44/iron/ 00:00: [place] FA/dha 00 Medical (PRENATE Branch MINI ORAL) multivitami 0 Yes Univer s n 1-01 ity of no.44/iron/ 00:00: [place] FA/dha 00 Medical (PRENATE Branch MINI ORAL) multivitami 0 Yes Univer s n 1-01 ity of no.44/iron/ 00:00: [place] FA/dha 00 Medical (PRENATE Branch MINI ORAL) multivitami Yes Univer s n 1-01 ity of no.44/iron/ 00:00: [place] FA/dha 00 Medical (PRENATE Branch MINI ORAL) Immunizations Ordered Filled Immunization Date Status Comments [facility] e Immunization Name Name SARS-COV-2 COVID-19 2020-10-31 Completed Unive rsity of PFIZER VACCINE 00:00:00 [facility] Branch SARS-COV-2 COVID-19 2020-10-31 Completed Unive rsity of PFIZER VACCINE 00:00:00 [facility] SARS-COV-2 COVID-19 2020-10-31 Completed Unive rsity of PFIZER VACCINE 00:00:00 [facility] SARS-COV-2 COVID-19 2020-10-31 Completed Unive rsity of PFIZER VACCINE 00:00:00 [facility] SARS-COV-2 COVID-19 2020-10-31 Completed Unive rsity of PFIZER VACCINE 00:00:00 [facility] SARS-COV-2 COVID-19 2020-10-31 Completed Unive rsity of PFIZER VACCINE 00:00:00 [facility] SARS-COV-2 COVID-19 2020-10-31 Completed Unive rsity of PFIZER VACCINE 00:00:00 [facility] SARS-COV-2 COVID-19 2020-10-31 Completed Unive rsity of PFIZER VACCINE 00:00:00 [facility] SARS-COV-2 COVID-19 2020-10-31 Completed Unive rsity of PFIZER VACCINE 00:00:00 [facility] SARS-COV-2 COVID-19 2020-10-31 Completed Unive rsity of PFIZER VACCINE 00:00:00 [facility] SARS-COV-2 COVID-19 2020-10-31 Completed Unive rsity of PFIZER VACCINE 00:00:00 [facility] SARS-COV-2 COVID-19 2020-10-31 Completed Unive rsity of PFIZER VACCINE 00:00:00 [facility] SARS-COV-2 COVID-19 2020-10-31 Completed Unive rsity of PFIZER VACCINE 00:00:00 [facility] SARS-COV-2 COVID-19 2020-10-31 Completed Unive rsity of PFIZER VACCINE 00:00:00 [facility] SARS-COV-2 COVID-19 2020-10-31 Completed Unive rsity of PFIZER VACCINE 00:00:00 [facility] SARS-COV-2 COVID-19 2020-10-31 Completed Unive rsity of PFIZER VACCINE 00:00:00 [facility] SARS-COV-2 COVID-19 2020-10-31 Completed Unive rsity of PFIZER VACCINE 00:00:00 [facility] SARS-COV-2 COVID-19 2020-09-19 Completed Unive rsity of PFIZER VACCINE 00:00:00 [facility] SARS-COV-2 COVID-19 2020-09-19 Completed Unive rsity of PFIZER VACCINE 00:00:00 [facility] SARS-COV-2 COVID-19 2020-09-19 Completed Unive rsity of PFIZER VACCINE 00:00:00 [facility] SARS-COV-2 COVID-19 2020-09-19 Completed Unive rsity of PFIZER VACCINE 00:00:00 [facility] SARS-COV-2 COVID-19 2020-09-19 Completed Unive rsity of PFIZER VACCINE 00:00:00 [facility] SARS-COV-2 COVID-19 2020-09-19 Completed Unive rsity of PFIZER VACCINE 00:00:00 [facility] SARS-COV-2 COVID-19 2020-09-19 Completed Unive rsity of PFIZER VACCINE 00:00:00 [facility] SARS-COV-2 COVID-19 2020-09-19 Completed Unive rsity of PFIZER VACCINE 00:00:00 [facility] SARS-COV-2 COVID-19 2020-09-19 Completed Unive rsity of PFIZER VACCINE 00:00:00 [facility] SARS-COV-2 COVID-19 2020-09-19 Completed Unive rsity of PFIZER VACCINE 00:00:00 [facility] SARS-COV-2 COVID-19 2020-09-19 Completed Unive rsity of PFIZER VACCINE 00:00:00 [facility] SARS-COV-2 COVID-19 2020-09-19 Completed Unive rsity of PFIZER VACCINE 00:00:00 [facility] SARS-COV-2 COVID-19 2020-09-19 Completed Unive rsity of PFIZER VACCINE 00:00:00 [facility] SARS-COV-2 COVID-19 2020-09-19 Completed Unive rsity of PFIZER VACCINE 00:00:00 [facility] SARS-COV-2 COVID-19 2020-09-19 Completed Unive rsity of PFIZER VACCINE 00:00:00 [facility] SARS-COV-2 COVID-19 2020-09-19 Completed Unive rsity of PFIZER VACCINE 00:00:00 [facility] SARS-COV-2 COVID-19 2020-09-19 Completed Unive rsity of PFIZER VACCINE 00:00:00 [facility] Rho (d) Immune 2020-07-16 Completed University of Globulin 00:00:00 [facility] Rho (d) Immune 2020-07-16 Completed University of Globulin 00:00:00 [facility] Rho (d) Immune 2020-07-16 Completed University of Globulin 00:00:00 [facility] Rho (d) Immune 2020-07-16 Completed University of Globulin 00:00:00 [facility] Rho (d) Immune 2020-07-16 Completed University of Globulin 00:00:00 [facility] Rho (d) Immune 2020-07-16 Completed University of Globulin 00:00:00 [facility] Rho (d) Immune 2020-07-16 Completed University of Globulin 00:00:00 [facility] Rho (d) Immune 2020-07-16 Completed University of Globulin 00:00:00 [facility] Rho (d) Immune 2020-07-16 Completed University of Globulin 00:00:00 [facility] Rho (d) Immune 2020-07-16 Completed University of Globulin 00:00:00 [facility] Rho (d) Immune 2020-07-16 Completed University of Globulin 00:00:00 [facility] Rho (d) Immune 2020-07-16 Completed University of Globulin 00:00:00 [facility] Rho (d) Immune 2020-07-16 Completed University of Globulin 00:00:00 [facility] Rho (d) Immune 2020-07-16 Completed University of Globulin 00:00:00 [facility] Rho (d) Immune 2020-07-16 Completed University of Globulin 00:00:00 [facility] Rho (d) Immune 2020-07-16 Completed University of Globulin 00:00:00 [facility] Rho (d) Immune 2020-07-16 Completed University of Globulin 00:00:00 [facility] Rho (d) Immune 2020-07-16 Completed University of Globulin 00:00:00 [facility] Rho (d) Immune 2020-07-16 Completed University of Globulin 00:00:00 [facility] Influenza Virus 2020-06-02 Completed Universit y of Vaccine Quad .5 mL 00:00:00 [facility] Influenza Virus 2020-06-02 Completed Universit y of Vaccine Quad .5 mL 00:00:00 [facility] Influenza Virus 2020-06-02 Completed Universit y of Vaccine Quad .5 mL 00:00:00 [facility] Influenza Virus 2020-06-02 Completed Universit y of Vaccine [place] .5 mL 00:00:00 [facility] Influenza Virus 2020-06-02 Completed Universit y of Vaccine [place] .5 mL 00:00:00 [facility] Influenza Virus 2020-06-02 Completed Universit y of Vaccine Quad .5 mL 00:00:00 [facility] Influenza Virus 2020-06-02 Completed Universit y of Vaccine [place] .5 mL 00:00:00 [facility] Influenza Virus 2020-06-02 Completed Universit y of Vaccine [place] .5 mL 00:00:00 [facility] Influenza Virus 2020-06-02 Completed Universit y of Vaccine [place] .5 mL 00:00:00 [facility] Influenza Virus 2020-06-02 Completed Universit y of Vaccine Quad .5 mL 00:00:00 [facility] Influenza Virus 2020-06-02 Completed Universit y of Vaccine Quad .5 mL 00:00:00 [facility] Influenza Virus 2020-06-02 Completed Universit y of Vaccine Quad .5 mL 00:00:00 [facility] Influenza Virus 2020-06-02 Completed Universit y of Vaccine [place] .5 mL 00:00:00 [facility] Influenza Virus 2020-06-02 Completed Universit y of Vaccine [place] .5 mL 00:00:00 [facility] Influenza Virus 2020-06-02 Completed Universit y of Vaccine [place] .5 mL 00:00:00 [facility] Influenza Virus 2020-06-02 Completed Universit y of Vaccine [place] .5 mL 00:00:00 [facility] Influenza Virus 2020-06-02 Completed Universit y of Vaccine Quad .5 mL 00:00:00 [facility] Influenza Virus 2020-06-02 Completed Universit y of Vaccine Quad .5 mL 00:00:00 [facility] Influenza Virus 2020-06-02 Completed Universit y of Vaccine Quad .5 mL 00:00:00 [facility] IM 6+ MO Branch Vital Signs Vital Name Observation Time Observation Value Comments Source Systolic blood 2022-10-03 16:17:00 137 mm[Hg] Univer sity of pressure [facility] Diastolic blood 2022-10-03 16:17:00 84 mm[Hg] Unive rsity of [facility] Heart rate 2022-10-03 16:17:00 78 /min Universi ty [facility] Body temperature 2022-10-03 16:17:00 36.72 Chary [facility] Respiratory rate 2022-10-03 16:17:00 16 /min [facility] Body height 2022-10-03 16:17:[address] [facility] Body weight 2022-10-03 16:17:00 107.502 kg Universi ty [facility] BMI 2022-10-03 16:17:00 41.98 kg/m2 [facility] Oxygen saturation in 2022-10-03 16:17:00 98 /min [facility] Arterial blood by [facility] Pulse oximetry Branch Systolic blood 2022-08-17 18:23:00 137 mm[Hg] Univer sity of pressure [facility] Diastolic blood 2022-08-17 18:23:00 88 mm[Hg] Unive rsity of pressure [facility] Heart rate 2022-08-17 18:23:00 76 /min Universi ty [facility] Body temperature 2022-08-17 18:23:00 36.67 Chary [facility] Respiratory rate 2022-08-17 18:23:00 18 /min Univ ersity of [facility] Body height 2022-08-17 18:23:00 160 cm Universi ty of [facility] Body weight 2022-08-17 18:23:00 109.77 kg Universi ty of [facility] BMI 2022-08-17 18:23:00 42.87 kg/m2 Universi ty of [facility] Systolic blood 2021-10-06 18:15:00 115 mm[Hg] Univer sity of pressure [facility] Diastolic blood 2021-10-06 18:15:00 61 mm[Hg] Unive rsity of pressure [facility] Heart rate 2021-10-06 18:15:00 92 /min Universi ty of [facility] Body temperature 2021-10-06 18:15:00 37.06 Chary Univ ersity of [facility] Respiratory rate 2021-10-06 18:15:00 18 /min Univ ersity of [facility] Body height 2021-10-06 18:15:00 160 cm Universi ty of [facility] Body weight 2021-10-06 18:15:00 92.987 kg Universi ty of [facility] BMI 2021-10-06 18:15:00 36.31 kg/m2 Universi ty of [facility] Oxygen saturation in 2021-10-06 18:15:00 98 /min University of Arterial blood by [facility] Pulse oximetry Branch Systolic blood 2021-07-17 22:48:00 156 mm[Hg] Univer sity of pressure [facility] Diastolic blood 2021-07-17 22:48:00 92 mm[Hg] Unive rsity of pressure [facility] Heart rate 2021-07-17 22:48:00 134 /min Universi ty of [facility] Body temperature 2021-07-17 22:48:00 37.44 Chary Univ ersity of [facility] Respiratory rate 2021-07-17 22:48:00 14 /min Univ ersity of [facility] Body height 2021-07-17 22:48:00 160 cm Universi ty of [facility] Body weight 2021-07-17 22:48:00 94.167 kg Universi ty of [facility] BMI 2021-07-17 22:48:00 36.77 kg/m2 [facility] Oxygen saturation in 2021-07-17 22:48:00 100 /min University Arterial blood by [facility] Pulse oximetry Branch Procedures Procedure Date / Time Performed Performing Clinician Phill pacheco POCT TEST 2022-10-03 16:39:00 Dee Dee Villalpando [facility] POCT URINALYSIS 2022-10-03 16:37:00 Kwasi [facility] POCT MOLECULAR STREP 2022-10-03 16:25:00 Unknown, Attending [facility] PAP SMEAR-LIQUID 2022-08-17 19:34:00 Adum, Hilda Hsieh [facility] BASED-CP [facility] URINE CULTURE 2022-08-17 19:34:00 Adum, [place] Jori [facility] HIGH RISK HPV-THIN 2022-08-17 19:34:00 Adum, Hilda Hsieh [facility] CONSENT/REFUSAL FOR 2022-08-17 18:12:35 Doctor Unassigned, No [facility] DIAGNOSIS AND [facility] Medical Branch TREATMENT ASSIGNMENT OF BENEFITS 2022-08-17 18:12:23 Doctor Unassigned, No [facility] Name [facility] POCT URINALYSIS W/O 2022-08-17 00:00:00 Adum, Hilda Hsieh [facility] SPECIFIC GRAVITY [facility] POCT URINALYSIS 2021-10-06 18:21:00 Shashi Mckeon [facility] EXTERNAL PROVIDER 2021-07-20 05:01:00 Doctor Unassigned, No [facility] RECORDS Name [facility] Encounters Start End Encounter Admission Attending Care Care Encounter Source Date/Time Date/Time Type Type Clinicians Facility Department ID 2022-10-25 2022-10-25 Patient Doctor [facility] [id number] [id number] Univers 00:00:00 00:00:00 Secure Msg Unassigned, ROBER 350.1.13.10 ity of [place] [facility] [id number] [phone] [facility] 370 Branch 2022-10-03 2022-10-03 Outpatient R KWASI [facility] [id number] Univers 11:00:00 11:47:26 DEE DEE itsasha [facility] 2022-10-03 2022-10-03 Urgent Dee Dee Villalpando [facility] [id number] Univers 11:00:00 11:47:26 Care Unknown, [facility] [id number] ity of [place] [id number] Shlomo as KLEBER?BLEA [phone] [address] MEDICAL OFFICE [facility] 2022-10-03 2022-10-03 Letter [facility] [id number] Univers 00:00:00 00:00:00 (Out) [facility] [id number] it y of [place] [id number] Shlomo as KLEBER?BLEA [phone] [address] OFFICE [facility] 2022-09-23 2022-09-23 [facility] [id number] Univers 11:15:00 11:15:00 HILDA olmedo [facility] 2022-08-22 2022-08-22 [facility] 1.2.840.114 [id number] Univers 00:00:00 00:00:00 Management Hilda BACON [id number] ity [facility] [id number] [phone] [address] 2022-08-22 2022-08-22 [facility] 1.2.840.114 [id number] Univers 00:00:00 00:00:00 Secure Msg Hilda BACON [id number] ity of [facility] [id number] [phone] [address] 2022-08-18 2022-08-18 Outpatient R AD, [facility] [id number] Univers 13:00:00 13:00:00 HILDADWAIN olmedo [facility] 2022-08-18 2022-08-18 Telephone [facility] [id number] Univers 00:00:00 00:00:00 Hilda BACON [id number] ity of [facility] [id number] [phone] Nh dical NAL 134 [facility] 2022-08-17 2022-08-17 Outpatient R BRIDGETTE [facility] [id number] Univers 13:15:00 14:26:40 HILDA ity [facility] 2022-08-17 2022-08-17 Office [facility] 1.2.840.114 [id number] Univers 13:15:00 14:26:40 Visit Hilda BACON [id number] [id number] [phone] Nh dical [address] 2022-08-17 2022-08-17 Orders Doctor TARUN 1.2.840.114 [id number] Univers 00:00:00 00:00:00 Only Unassigned, ORLY 350.1.13.10 [facility] [id number] [place] as [phone] [address] 2021-11-07 2021-11-07 Outpatient [facility] [id number] Univers 16:00:00 16:00:00 FAITH ity [facility] 2021-10-07 2021-10-07 Telephone [facility] [id number] Univers 00:00:00 00:00:00 Amanda HEALTH [id number] it y of [place] [id number] Shlomo as KLEBER?BLEA [phone] Nh dic[address] OFFICE [facility] 2021-10-06 2021-10-06 Outpatient [facility] [id number] Univers 13:00:00 13:55:30 AMANDA ity [facility] 2021-10-06 2021-10-06 Urgent [facility] 1.2.840.114 [id number] Univers 13:00:00 13:20:00 Care Amanda HEALTH [id number] it y of [place] 4.2.7.2.686 [place] as KLEBER?BLEA [phone] Me bret [address] MEDICAL OFFICE [facility] 2021-07-20 2021-07-20 Orders Doctor TARUN 1.2.840.114 [id number] Univers 00:00:00 00:00:00 Only Unassigned, ORLY 350.1.13.10 ity of [place] [employer] [id number] Sh[place]omo as [phone] [facility] [address] [place] 2021-07-17 2021-07-17 Outpatient R [facility] [id number] Univers 17:40:00 18:28:50 RAMY olmedo [facility] 2021-07-17 2021-07-17 Urgent Janet [facility] 1.2.840.11 [id number] Univers 17:40:00 18:28:50 [facility] [id number] ity of [place] 4.2.7.2.686 Shlomo as KLEBER?BLEA [phone] [address] MEDICAL OFFICE [facility] 2021-06-29 2021-06-29 Outpatient R JANES [facility] [id number] Univers 19:20:00 19:20:00 STONE olmedo o f [facility] 2021-06-27 2021-06-28 Outpatient X CHETAN [facility] [id number] Univers 08:40:00 15:42:00 JACKELYN olmedo [facility] 2021-06-27 2021-06-28 Emergency Sohail Ramey [facility] 1.2.840. 114 [id number] Univers 08:40:00 15:42:00 Jackelyn Benton [id number] [place] DR[place] [phone] [facility] [address] [place] 2021-06-03 2021-06-03 [employer] Rec[employer]iter 2, Adc Lab [facility] 1.2.840.114 [id number] Univers 13:15:00 13:15:00 Visit Steve Rivas 350.1.1 3.10 ity of [facility] 4.2.7.2.686 [place] [facility] [phone] Nh dical NAL [address] [facility] 2021-06-03 2021-06-03 Outpatient R [facility] [id number] Univers 13:15:00 09:45:50 STEVE Bergman o f [facility] 2021-05-25 2021-05-25 Telephone Adum, [facility] [id number] Univers 00:00:00 00:00:00 Hilda BACON [id number] [place] [phone] Nh dical NAL 134 Branch [facility] 2021-05-11 2021-05-11 Orders Doctor TARUN 1.2.840.114 [id number] Univers 00:00:00 00:00:00 Only Unassigned, ORLY 350.1.13.10 ity of [place] [employer] [facility] [id number] [place] as [phone] [facility] [address] [place] 2021-04-08 2021-04-08 Telephone [facility] [id number] Univers 00:00:00 00:00:00 Kathy A [facility] 350.1.13.10 i ty of [place] 4.2.7.2.686 Shlomo as KLEBER?BLEA [id number] [facility] [address] [place] MEDICAL OFFICE BUILD[facility] 2021-04-04 2021-04-04 Outpatient R [facility] [id number] Univers 10:14:48 23:59:00 STEVE Bergman o f [facility] 2021-04-04 2021-04-04 Outpatient R [facility] [id number] Univers 10:14:48 23:59:00 E, STEVE brennery o f [facility] 2021-04-04 2021-04-04 [facility] 1.2.840.114 [id number] Univers 10:00:00 23:59:00 Encounter Steve bergman 350.1.13.10 [place] C[place] [id number] [facility] [address] [place] 2021-04-04 2021-04-04 Orders Doctor TARUN 1.2.840.114 [id number] Univers 00:00:00 00:00:00 Only Unassigned, ORLY 350.1.13.10 ity of [place] [employer] [facility] [id number] Shlomo as [id number] [facility] [address] [place] 2021-03-21 2021-03-21 Telephone [facility] [id number] Univers 00:00:00 00:00:00 Kathy A [facility] 350.1.13.10 i ty of [place] 4.2.7.2.686 Shlomo as KLEBER?BLEA [phone] Nh maryamshawna JEANNIE [address] [place] [address] MEDICAL OFFICE BUILDING 2021-02-28 2021-02-28 Outpatient [facility] [id number] Univers 12:30:00 12:30:00 SCOTT [facility] 2021-02-09 2021-02-09 Hospital Jud David [id number] Univers 12:30:00 23:59:00 Encounter Scottmonserrat Villalba 350.1.13.10 ity of [facility] 4.2.7.2.686 [place]omo as [id number] [facility] [address] [place] 2021-02-09 2021-02-09 Outpatient [facility] [id number] Univers 12:30:00 12:30:00 SCOTT [facility] 2021-02-05 2021-02-05 Hospital Jud Yates [id number] Univers 11:48:00 23:59:00 Encounter Attending Orly [facility].1.13.10 [facility] 4.2.7.2.686 [place] as [phone] [address] 2021-02-05 2021-02-05 Outpatient R MICKI [facility] [id number] Univers 00:00:00 23:59:00 ATTENDING honorio [facility] 2021-02-05 2021-02-05 Outpatient [facility] [id number] Univers 09:00:00 09:21:58 DEE DEE olmedo [facility] 2021-02-05 2021-02-05 Outpatient [facility] [id number] Univers 09:00:00 09:21:58 DEE DEE sasha [facility] 2021-02-05 2021-02-05 Outpatient [facility] [id number] Univers 09:00:00 09:21:58 DEE DEE [facility] 2021-02-05 2021-02-05 Urgent Nurse, Sarbjit [facility] 1.2.840.114 [id number] Univers 09:00:34 09:20:34 Care Janet [facility] 350.1.13.10 ity of Dee Dee Villalpando 4.2.7.2.686 [place] Kleber?Blea [phone] [address] Medical Office [facility] 2021-02-04 2021-02-04 Outpatient R [facility] [id number] Univers 20:40:00 20:40:00 [facility] 2021-02-04 2021-02-04 Outpatient [facility] [id number] Univers 20:40:00 20:40:00 [facility] 2021-02-04 2021-02-04 Outpatient [facility] [id number] Univers 20:40:00 20:40:00 [facility] 2021-01-22 2021-01-22 Telephone [facility] [id number] Univers 00:00:00 00:00:00 [facility] 350.1.13.10 ity [facility] [id number] Shlomo as Kleber?Blea [phone] [address] Medical Office Building 2021-01-19 2021-01-19 Urgent [facility]ra [facility] 1.2.840 .114 [id number] Univers 19:32:11 19:58:17 Care Shashi Mckeon [facility] 350.1.13.10 ity of [place] 4.2.7.2.686 Shlomo as Kleber?Blea [phone] [address] Office Building 2021-01-19 2021-01-19 Outpatient R TYLER [facility] [id number] Univers 19:20:00 19:58:17 DEIDRA olmedo o tory [facility] 2020-11-18 2020-11-18 Outpatient R [facility] [id number] Univers 10:30:00 10:30:00 KATHY olmedo [facility] 2020-11-18 2020-11-18 Office [facility] 1.2.840.114 [id number] Univers 09:06:16 10:08:40 Visit Kathy Regalado [facility] 350.1.13.10 i ty of [place] 4.2.7.2.686 Shlomo as Professio [phone] Nh dical nal [address] [facility] 2020-11-18 2020-11-18 Outpatient R JANES [facility] [id number] Univers 10:00:00 10:00:00 STONE ity o tory [facility] 2020-11-15 2020-11-15 Outpatient [facility] [id number] Univers 20:40:00 20:40:00 DEE DEE olmedo [facility] 2020-11-15 2020-11-15 Urgent Tarun Alvarez [facility] 1.2.840.114 [id number] Univers 19:14:08 20:24:57 Care Dee Dee Villalpando [facility] 350.1.13.10 ity of [place] 4.2.7.2.686 Shlomo as Professio [phone] Nh dical nal 044 [facility] 2020-09-16 2020-09-16 Outpatient R BRIDGETTE, [facility] [id number] Univers 10:15:00 10:15:00 HILDA olmedo [facility] 2020-09-16 2020-09-16 [employer] 2, Adc Lab [facility] 1.2.840.114 [id number] Univers 08:57:21 09:12:21 Visit Hilda Stanton 350.1.13.10 ity malinda Sneed 4.2.7.2.686 [place] [phone] [place]ical nal [facility] 2020-08-27 2020-08-27 Refill Ad, [facility] 1.2.840.114 [id number] Univers 00:00:00 00:00:00 Hilda Hsieh Yvan [id number] it[id number] [phone] [place]ical nal 134 [facility] 2020-08-02 2020-08-02 Outpatient R [facility] [id number] Univers 08:15:00 08:15:00 ity [facility] 2020-07-27 2020-07-27 Office Ad, [facility] 1.2.840.114 [id number] Univers 10:44:26 11:28:33 Visit Hilda L Yvan [id number] [id number] [phone] N[place] dical nal [address] [place] [address] 2020-07-27 2020-07-27 Outpatient R ADUM, [facility] [id number] Univers 10:30:00 10:30:00 HILDA ity of [facility] 2020-07-26 2020-07-26 Outpatient R [facility] [id number] Univers 11:00:00 11:00:00 ity [facility] 2020-07-20 2020-07-20 Case Ad, [facility] 1.2.840.114 [id number] Univers 00:00:00 00:00:00 Management Hilda Bacon [id number] [id number] [phone] N[place] dical nal [address] [place] [address] 2020-07-16 2020-07-16 Nurse Nurse, [facility] 1.2.840.114 [id number] Univers 14:36:04 15:08:46 Visit Hilda Stanton Yvan [id number] [id number] [phone] Nh dical nal [address] [place] [address] 2020-07-16 2020-07-16 [employer], Adc Lab [facility] 1.2.840.114 [id number] Univers 14:29:27 14:44:27 Visit AdumHilda [id number] [id number] [phone] [place] dical nal 353 [facility] 2020-07-16 2020-07-16 Outpatient R [facility] [id number] Univers 14:30:00 14:30:00 ity of [facility] 2020-07-13 2020-07-13 [facility] 1.2.840.114 [id number] Univers 09:31:55 10:43:43 Hilda Bacon [id number] ity of [id number] [facility] [phone] Nh dical nal 134 [facility] 2020-07-13 2020-07-13 Outpatient R [facility], [facility] [id number] Univers 09:30:00 09:30:00 HILDA ity [facility] 2020-07-07 2020-07-07 Outpatient R AD, [facility] [id number] Univers 17:03:11 23:59:00 HILDA ity [facility] 2020-07-07 2020-07-07 Outpatient R [facility], [facility] [id number] Univers 17:03:11 23:59:00 HILDA ity [facility] 2020-07-07 2020-07-07 [facility] 1.2.840.114 [id number] Univers 17:00:00 23:59:00 Encounter Hilda Bacon [id number] [id number] [phone] [facility] [address] [place] 2020-07-03 2020-07-03 Outpatient R [facility] [id number] Univers 09:30:00 09:30:00 ity [facility] 2020-07-02 2020-07-02 [facility] [id number] Univers 00:00:00 00:00:00 Hilda Bacon [id number] [place].2.[place] [phone] N[place] dical nal 134 [facility] 2020-07-01 2020-07-01 [employer] 2, Adc Lab [facility] 1.2.840.114 [id number] Univers 09:35:08 09:50:08 Visit Jerod Oliva Yuval [place] [id number] [place] 4.2.7.2.[place] [phone] N[place] dical nal 353 [facility] 2020-07-01 2020-07-01 Outpatient R [facility] [id number] Univers 09:30:00 09:30:00 ity of [facility] 2020-06-30 2020-06-30 Routine Adum, [facility] 1.2.840.114 [id number] Univers 16:09:38 17:34:11 Hilda Bacon [id number] ity of [place] [id number] [phone] Nh dical nal 134 [facility] 2020-06-30 2020-06-30 Outpatient R ADUM, [facility] [id number] Univers 16:15:00 16:15:00 HILDA itsasha [facility] 2020-06-28 2020-06-28 Outpatient R GABY, [facility] [id number] Univers 11:00:00 11:00:00 RASHAWN brennery [facility] 2020-06-25 2020-06-25 Orders Doctor TARUN 1.2.840.114 [id number] Univers 00:00:00 00:00:00 Only Unassigned, ORLY 350.1.13.10 ity of [place] [facility] 4.2.7.2.686 Shlomo as [phone] [address] 2020-06-23 2020-06-23 Refill Adum, [facility] 1.2.840.114 [id number] Univers 00:00:00 00:00:00 Hilda Bacon [id number] [place] 4[place]2.[place].2.[place] [phone] Nh dical nal [address] [place] [address] 2020-06-14 2020-06-14 [employer] 2, Adc Lab [facility] 1.2.840.114 [id number] Univers 08:59:33 09:14:33 Visit FranckTamiko johnsondwain [place] 350.1.13.10 [place] 4.2.7.2.[place] [phone] Nh dic[address] 2020-06-14 2020-06-14 [facility] [id number] Univers 08:45:00 08:45:00 HILDA ity of [facility] 2020-06-09 2020-06-09 Case [facility] 1.2.840.114 [id number] Univers 00:00:00 00:00:00 Management Hilda Bacon [id number] [place] [id number] [phone] [address] 2020-06-03 2020-06-03 [employer] 2, Adc Lab [facility] 1.2.840.114 [id number] Univers 09:58:45 10:13:45 Visit Jerod Oliva 350.1.13.10 [place] 4[place]2.[place].2.[place] [phone] Nh dical nal [address] [place] [address] 2020-06-03 2020-06-03 Outpatient R JEROD OLIVA [facility] [id number] Univers 09:45:00 09:45:00 ity of [facility] 2020-06-03 2020-06-03 [facility] 1.2.840.114 [id number] Univers 00:00:00 00:00:00 Hilda Bacon [id number] [place] [id number] [phone] Nh dical nal [address] [place] [address] 2020-06-02 2020-06-02 Outpatient R ADUM, [facility] [id number] Univers 10:30:00 12:17:44 HILDA ity [facility] 2020-06-02 2020-06-02 Initial Adum, [facility] 1.2.840.114 [id number] Univers 10:25:37 12:17:44 Hilda Bacon [id number] ity of [place] 4[place]2.[place].2.[place] [phone] Nh dical [facility] [address] [facility] 2020-06-02 2020-06-02 Out[facility] [id number] Univers 10:30:00 10:30:00 HILDA olmedo [facility] 2020-06-02 2020-06-02 Orders Doctor TARUN 1.2.840.114 [id number] Univers 00:00:00 00:00:00 Only Unassigned, ORLY 350.1.13.10 ity of [place] [facility] 4.2.7.2.686 [place] as [phone] [address] 2019-11-22 2019-11-22 Outpatient R ROMELIA [facility] [id number] Univers 15:20:00 15:20:00 DENISEJACOB olmedo [facility] 2019-11-22 2019-11-22 Laboratory Lab, [facility] 1.2.840.114 [id number] 14:37:19 14:57:19 Only Fam Pob I Health [id number] [place] 4.2.7.2.686 Professio [phone] nal [facility] [address] 2019-11-22 2019-11-22 Laboratory Lab, [facility] Fam Pob I [facility] 1.2. 840.114 [id number] Univers 14:37:19 14:57:19 Only Romelia, [facility] [id number] ity of [place] 4.2.7.2.686 [place] Professio [phone] Nh dical [facility] [address] [place] [address] 2019-11-22 2019-11-22 Letter Nurse, [facility] 1.2.840.114 [id number] 00:00:00 00:00:00 (Out) Fam Pob I Health [id number] Surgical [id number] Specialti [phone] [address] [place] 2019-11-22 2019-11-22 Letter Nurse, Raúl [facility] 1.2.840.114 [id number] Univers 00:00:00 00:00:00 (Out) Fam Pob I Health 350.1.13.10 ity of Surgical [id number] [place] Specialti [phone] Me dical es [address] [place] Results Test Description Test Time Test Comments Results Result Comments Source POCT TEST 2022-10-03 16:40:00 Test Item Value Reference Range Interpretation Comme nts POCT PREG (test code = 1605) Negative On board controls acceptable with C Line Yes (test code = 3574) POCT PREG LOT # (test code = 3575) [id number] POCT PREG TEST DATE (test code = 09/21/2023 357) DEEPTHI (test code = DEEPTHI) accurate development and interpretation of all internal controls Lab Interpretation (test code = 44135-3) Normal [facility] URINALYSIS W SPECIFIC [id number] 16:38:00 Test Item Value Reference Range Interpretation Comments POCT U SP GRAV (test 1.020 mg/dl 1.005-1.025 code = 3255) POCT PH U (test code = 5 mg/dl 5-8 3254) POCT U LEUK EST (test Trace Negative - code = 3263) Negative POCT U NIT (test code Negative Negative - = 3262) Negative POCT U PROT (test code Trace Negative - = 3259) Negative POCT U GLU (test code Normal Negative - = 3256) Negative POCT U KETONE (test Negative Negative - code = 3258) Negative POCT U UROBILI (test Normal 0.2-1 code = 3260) POCT U BILI (test code Negative Negative - = 3261) Negative POCT U BLD (test code Trace Negative - = 3257) Negative POCT U COLOR (test Yellow code = 3266) POCT U APPEAR (test Clear code = 3267) DEEPTHI (test code = DEEPTHI) accurate development and interpretation of all internal controls Lab Interpretation Normal (test code = 23512-3) [facility] MOLECULAR [id number] 16:33:31 Test Item Value Reference Range Interpretation Comments POCT Molecular Strep (test code = Negative Negative 10074-7) Lab Interpretation (test code = Normal 62467-0) [facility] URINALYSIS W/O SPECIFIC [id number] 19:35:00 Test Item Value Reference Range Interpretation Comments POCT PH U (test code = 3254) 6 mg/dl 5-8 POCT U LEUK EST (test code = + Negative - Negative 3263) POCT U NIT (test code = 3262) Postive Negative - Negative POCT U PROT (test code = 3259) Trace Negative - Negative POCT U GLU (test code = 3256) Normal Negative - Negative POCT U KETONE (test code = 3258) + Negative - Negative POCT U BLD (test code = 3257) Trace Negative - Negative [facility] URINALYSIS W/O SPECIFIC [id number] 19:35:00 Test Item Value Reference Range Interpretation Comments POCT PH U (test code = 3254) 6 mg/dl 5-8 POCT U LEUK EST (test code = + Negative - Negative 3263) POCT U NIT (test code = 3262) Postive Negative - Negative POCT U PROT (test code = 3259) Trace Negative - Negative POCT U GLU (test code = 3256) Normal Negative - Negative POCT U KETONE (test code = 3258) + Negative - Negative POCT U BLD (test code = 3257) Trace Negative - Negative [facility] URINALYSIS W/O SPECIFIC [id number] 19:35:00 Test Item Value Reference Range Interpretation Comments POCT PH U (test code = 3254) 6 mg/dl 5-8 POCT U LEUK EST (test code = + Negative - Negative 3263) POCT U NIT (test code = 3262) Postive Negative - Negative POCT U PROT (test code = 3259) Trace Negative - Negative POCT U GLU (test code = 3256) Normal Negative - Negative POCT U KETONE (test code = 3258) + Negative - Negative POCT U BLD (test code = 3257) Trace Negative - Negative [facility] URINALYSIS W/O SPECIFIC [id number] 19:35:00 Test Item Value Reference Range Interpretation Comments POCT PH U (test code = 3254) 6 mg/dl 5-8 POCT U LEUK EST (test code = + Negative - Negative 3263) POCT U NIT (test code = 3262) Postive Negative - Negative POCT U PROT (test code = 3259) Trace Negative - Negative POCT U GLU (test code = 3256) Normal Negative - Negative POCT U KETONE (test code = 3258) + Negative - Negative POCT U BLD (test code = 3257) Trace Negative - Negative [facility] [id number] 19:35:00 Test Item Value Reference Range Interpretation Comments POCT PH U (test code = 3254) 6 mg/dl 5-8 POCT U LEUK EST (test code = + Negative - Negative 3263) POCT U NIT (test code = 3262) Postive Negative - Negative POCT U PROT (test code = 3259) Trace Negative - Negative POCT U GLU (test code = 3256) Normal Negative - Negative POCT U KETONE (test code = 3258) + Negative - Negative POCT U BLD (test code = 3257) Trace Negative - Negative [facility] W/O SPECIFIC [id number] 19:35:00 Test Item Value Reference Range Interpretation Comments POCT PH U (test code = 3254) 6 mg/dl 5-8 POCT U LEUK EST (test code = + Negative - Negative 3263) POCT U NIT (test code = 3262) Postive Negative - Negative POCT U PROT (test code = 3259) Trace Negative - Negative POCT U GLU (test code = 3256) Normal Negative - Negative POCT U KETONE (test code = 3258) + Negative - Negative POCT U BLD (test code = 3257) Trace Negative - Negative [facility] [id number] 18:22:00 Test Item Value Reference Range Interpretation Comments POCT U SP GRAV (test 1.020 mg/dl 1.005-1.025 code = 3255) POCT PH U (test code = 6 mg/dl 5-8 3254) POCT U LEUK EST (test trace Negative - code = 3263) Negative POCT U NIT (test code neg Negative - = 3262) Negative POCT U PROT (test code neg Negative - = 3259) Negative POCT U GLU (test code neg Negative - = 3256) Negative POCT U KETONE (test neg Negative - code = 3258) Negative POCT U UROBILI (test neg 0.2-1 code = 3260) POCT U BILI (test code neg Negative - = 3261) Negative POCT U BLD (test code neg Negative - = 3257) Negative POCT U COLOR (test yellow code = 3266) POCT U APPEAR (test clear code = 3267) DEEPTHI (test code = DEEPTHI) accurate development and interpretation of all internal controls Lab Interpretation Normal (test code = 15374-3) [facility]
[2022-12-21 16:54] LABS: Absolute Lymphocytes (CBC) 2.7 K/uL (0.7-4.9); Hematocrit 39.8 % (36.0-45.0); Lymphocytes % 28.9 % (15.3-44.8); MCV 82.2 fL (80-100); MPV 8.7 fL (7.6-11.3); Platelets 288 thou/uL (152-406); RBC Red Blood Cell Count 4.84 M/uL (3.86-4.86)
[2022-12-21 17:04] LABS: Albumin 4.1 g/dL (3.4-5.0); Bilirubin Total 0.8 mg/dL (0.2-1.0); Potassium 3.2 mEq/L (3.5-5.1); Protein, Total 8.9 g/dL (6.4-8.2)
[2022-12-21] MEDS ORDERED: DIPHENHYDRAMINE 50 MG/ML VIAL ONE (18:37)
--- NOTE | 2022-12-21 19:01 | RAD REPORT ---
EXAM DESCRIPTION: CT - Abdomen Pelvis W Contrast - 12/21/2022 6:34 pm CLINICAL HISTORY: ABD PAIN COMPARISON: No comparisons TECHNIQUE: Thin cut axial CT imaging of the abdomen and pelvis was performed following intravenous a dministration of 100 mL Isovue 300. Multiplanar reformats were generated and reviewed. All CT scans are performed using dose optimization technique as appropriate and may include automated exposure control or mA/KV adjustment according to patient size. FINDINGS: No suspicious findings in the lung bases. The liver, spleen, and pancreas show no suspicious findings. Gallbladder was surgically removed. Symmetric renal function is seen with no hydronephrosis or suspicious renal mass. No dilated bowel loops or bowel wall thickening. Appendix is unremarkable. No free air, free fluid or inflammatory stranding. No hernia, mass or bulky lymphadenopathy. Retroverted uterus. The urinary bl adder is without significant finding. No suspicious bony findings. IMPRESSION: No acute intra-abdominal process.
[2022-12-21] MEDS ORDERED: POTASSIUM 25 MEQ EFFERV TAB ONE (19:24)
--- NOTE | 2022-12-21 19:26 | EDPHYS ---
Physician Documentation [facility] Name: Claudette De La Rosa Age: 37 yrs Sex: Female : 1985 Arrival Date: 12/21/2022 Time: 16:14 Bed 12 Private MD: ED Physician Farhad Antoine HPI: 12/21 16:36 This 37 yrs old Female presents to ER via Ambulatory with complaints of sb4 Abdominal Pain. 16:36 The patient presents with abdominal pain in the periumbilical area. right lower sb4 quadrant. Onset: The symptoms/episode began/occurred yesterday. The symptoms do not radiate. Associated signs and symptoms: Pertinent positives: diarrhea, nausea. The symptoms are described as constant. Modifying factors: The symptoms are alleviated by nothing, the symptoms are aggravated by drinking, food. The patient has not experienced similar symptoms in the past. The patient has not recently seen a physician. patient reports periumbilical pain and RLQ pain that began yesterday that is associated with nausea. she states the RLQ pain is "ovary" pain as she has had ovarian cysts in the past. also reports that her menstrual cycle is late. [employer]AL: 16:31 LMP 11/15/2022 mb9 Historical: - Allergies: 16:29 Latex, Natural Rubber; mb9 - Home Meds: 16:29 None [Active]; mb9 - PMHx: 16:29 None; mb9 - PSHx: 16:29 section; tummy tuck; Cholecystectomy; mb9 - Immunization history:: Adult Immunizations up to date. - Social history:: Smoking status: Patient denies any tobacco usage or history of. ROS: 16:36 Constitutional: Negative for fever, chills, and weight loss. sb4 16:36 Abdomen/GI: Positive for abdominal pain, nausea, diarrhea, Negative for vomiting, black/tarry stool, rectal pain. 16:36 : Positive for missed period, Negative for vaginal discharge. 16:36 All other systems are negative. Exam: 16:36 Constitutional: This is a well developed, well nourished patient who is awake, alert, sb4 and in no acute distress. Head/Face: Normocephalic, atraumatic. Eyes: Extra-ocular motions intact. Periorbital areas with no swelling, redness, or edema. ENT: Mucous membranes moist. Cardiovascular: Regular rate and rhythm with a normal S1 and S2. Respiratory: Lungs have equal breath sounds bilaterally, clear to auscultation and percussion. No rales, rhonchi or wheezes noted. No increased work of breathing, no retractions or nasal flaring. Abdomen/GI: Soft, non-tender, no distension. Skin: Warm, dry with normal turgor. Normal color with no rashes, no lesions, and no evidence of cellulitis. MS/ Extremity: Pulses equal, no cyanosis. Neurovascular intact. Full, normal range of motion. Neuro: Awake and alert, GCS 15, oriented to person, place, time, and situation. Cranial nerves II-XII grossly intact. Motor strength 5/5 in all extremities. Sensory grossly intact. Cerebellar exam normal. Normal gait. Vital Signs: 16:28 BP 159 / 88; Pulse 95; Resp 18; Temp 99.1(O); Pulse Ox 100% on R/A; Weight 99.79 kg; mb9 Height 5 ft. 3 in. ; Pain 4/10; 17:45 BP 142 / 78; Pulse 84; Resp 18; Pulse Ox 100% on R/A; mb9 19:15 BP 143 / 93; Pulse 78; Resp 18; Pulse Ox 100% on R/A; mb9 16:28 Body Mass Index 38.97 (99.79 kg, 160.02 cm) mb9 16:28 Pain Scale: Adult mb9 MDM: 16:21 Patient medically screened. sb4 16:36 Differential diagnosis: appendicitis, bowel obstruction, diverticulitis, Dysmenorrhea, sb4 Ectopic , Endometriosis, non-specific abd pain, urinary tract infection, IUP. 19:25 Data reviewed: vital signs, nurses notes, lab test result(s), radiologic studies, and sb4 as a result, I will discharge patient. Counseling: I had a detailed discussion with the patient and/or guardian regarding the historical points, exam findings, and any diagnostic results supporting the discharge/admit diagnosis, the presence of at least one elevated blood pressure reading (>120/80) during this emergency department visit, lab results, radiology results, to return to the emergency department if symptoms worsen or persist or if there are any questions or concerns that arise at home. Special discussion: Based on the patient's Hx, exam, and Dx evaluation, there is no indication for emergent surgery or inpatient Tx. It is understood by the patient/guardian that if the Sx's persist or worsen they need to return immediately for re-evaluation. 12/21 16:28 Order name: CBC with Diff; Complete Time: 17:00 sb4 12/21 16:28 Order name: CMP; Complete Time: 17:05 sb4 12/21 16:28 Order name: Lipase; Complete Time: 17:05 sb4 12/21 16:28 Order name: Test, Urine; Complete Time: 16:48 sb4 12/21 16:28 Order name: Urinalysis w/ reflexes; Complete Time: 16:50 sb4 12/21 16:28 Order name: CT Abd/Pelvis - IV Contrast Only; Complete Time: 19:05 sb4 12/21 16:28 Order name: IV Saline Lock; Complete Time: 16:40 sb4 12/21 16:28 Order name: Labs collected and sent; Complete Time: 16:40 sb4 Administered Medications: 18:28 Drug: diphenhydrAMINE IVP 25 mg Route: IVP; Site: right antecubital; mb9 19:15 Follow up: Response: No adverse reaction mb9 19:15 Drug: Potassium PO Effervescent Tablet 50 mEq Route: PO; mb9 Disposition: 12/22 11:55 Co-signature as Attending Physician, Farhad Antoine MD I reviewed the patient's care rn provided by the Advanced Practice Provider and agree with the diagnosis and treatment plan. Disposition Summary: 12/21/22 19:26 Discharge Ordered Location: Home sb4 Problem: an ongoing problem sb4 Symptoms: are unchanged sb4 Condition: Stable sb4 Diagnosis - Abdominal pain, Generalized sb4 - Diarrhea, unspecified sb4 Followup: sb4 - With: Private Physician - When: As needed - Reason: Recheck today's complaints, Continuance of care, Re-evaluation by your physician Discharge Instructions: - Discharge Summary Sheet sb4 - Abdominal Pain, Adult sb4 - Food Choices to Help Relieve Diarrhea, Adult sb4 - Diarrhea, Adult sb4 Forms: - Medication Reconciliation Form sb4 - Thank You Letter sb4 - Antibiotic Education sb4 - Prescription Opioid Use sb4 - Patient Portal Instructions sb4 - Leadership Thank You Letter sb4 Prescriptions: - Imodium A-D 2 mg Oral tablet - take 0.5 tablet by ORAL route every 4 hours as needed for loose stool; do not sb4 exceed 6 mg per 24 hrs; 12 tablet; Refills: 0, Product Selection Permitted - dicyclomine 20 mg Oral Tablet - take 1 tablet by ORAL route 3 times per day; 12 tablet; Refills: 0, Product sb4 Selection Permitted Signatures: Dispatcher [employer] Farhad Armas MD MD rn Brown, Sophia, PA-C PA-C sb4 Judith Doan RN RN mb9
--- NOTE | 2022-12-21 19:26 | ER ---
Nurse's Notes [facility] Name: Claudette De La Rosa Age: 37 yrs Sex: Female : 1985 Arrival Date: 12/21/2022 Time: 16:14 Bed 12 Private MD: Diagnosis: Abdominal pain, Generalized;Diarrhea, unspecified Presentation: 12/21 16:28 Chief complaint: Patient states: "I started having lower abdominal cramps yesterday, mb9 right ovary pain, and diarrhea.". Coronavirus screen: Vaccine status: Patient reports receiving the 2nd dose of the covid vaccine. Ebola Screen: No symptoms or risks identified at this time. Initial Sepsis Screen: Does the patient meet any 2 criteria? HR > 90 bpm. Does the patient have a suspected source of infection? No. Patient's initial sepsis screen is negative. Risk Assessment: Do you want to hurt yourself or someone else? Patient reports no desire to harm self or others. Onset of symptoms was December 21, 2022. 16:28 Method Of Arrival: Ambulatory mb9 16:28 Acuity: ROSHAN 3 mb9 Triage Assessment: 16:30 General: Appears uncomfortable, Behavior is calm, cooperative. Pain: Complains of pain mb9 in abdomen Pain does not radiate. Quality of pain is described as aching, crampy, throbbing, Pain began 1 day ago. Is continuous. Neuro: Steele Agitation-Sedation Scale (RASS): 0 - Alert and Calm Level of Consciousness is awake, alert, obeys commands, Oriented to person, place, time, situation, Appropriate for age. Cardiovascular: Heart tones S1 S2 present Patient's skin is warm and dry. Respiratory: Airway is patent Respiratory effort is even, unlabored, Respiratory pattern is regular, symmetrical, Breath sounds are clear bilaterally. GI: Abdomen is round non-distended, Bowel sounds present X 4 quads. Abd is soft and non tender X 4 quads. Reports diarrhea. GI: Reports lower abdominal pain. : No signs and/or symptoms were reported regarding the genitourinary system. Derm: Skin is pink, warm \\T\\ dry. Musculoskeletal: Range of motion: intact in all extremities. LEGAL INTERNSHIP: 16:31 LMP 11/15/2022 mb9 Historical: - Allergies: 16:29 Latex, Natural Rubber; mb9 - Home Meds: 16:29 None [Active]; mb9 - PMHx: 16:29 None; mb9 - PSHx: 16:29 section; tummy tuck; Cholecystectomy; mb9 - Immunization history:: Adult Immunizations up to date. - Social history:: Smoking status: Patient denies any tobacco usage or history of. Screenin:31 [facility] ED Fall Risk Assessment (Adult) History of falling in the last 3 months, mb9 including since admission No falls in past 3 months (0 pts) Confusion or Disorientation No (0 pts) Intoxicated or Sedated No (0 pts) Impaired Gait No (0 pts) Mobility Assist Device Used No (0 pt) Altered Elimination No (0 pt) Score/Fall Risk Level 0 - 2 = Low Risk Oriented to surroundings, Maintained a safe environment, Educated pt \\T\\ family on fall prevention, incl call for assistance when getting out of bed. Abuse screen: Denies threats or abuse. Nutritional screening: No deficits noted. Tuberculosis screening: No symptoms or risk factors identified. Assessment: 16:32 Reassessment: see triage assessment. mb9 17:45 Reassessment: No changes from previously documented assessment. Patient and/or family mb9 updated on plan of care and expected duration. Pain level reassessed. Patient is alert, oriented x 3, equal unlabored respirations, skin warm/dry/pink. 18:24 Reassessment: pt taken to CT via wheelchair. mb9 19:15 Reassessment: No changes from previously documented assessment. Patient and/or family mb9 updated on plan of care and expected duration. Pain level reassessed. Patient is alert, oriented x 3, equal unlabored respirations, skin warm/dry/pink. Vital Signs: 16:28 BP 159 / 88; Pulse 95; Resp 18; Temp 99.1(O); Pulse Ox 100% on R/A; Weight 99.79 kg; mb9 Height 5 ft. 3 in. ; Pain 4/10; 17:45 BP 142 / 78; Pulse 84; Resp 18; Pulse Ox 100% on R/A; mb9 19:15 BP 143 / 93; Pulse 78; Resp 18; Pulse Ox 100% on R/A; mb9 16:28 Body Mass Index 38.97 (99.79 kg, 160.02 cm) mb9 16:28 Pain Scale: Adult mb9 ED Course: 16:17 Patient arrived in ED. rg4 16:18 Larissa Charles PA-C is PHCP. sb4 16:18 Farhad Antoine MD is Attending Physician. sb4 16:28 Judith Doan, RN is Primary Nurse. mb9 16:28 Arm band placed on. mb9 16:29 Triage completed. mb9 16:31 Bed in low position. Call light in reach. Side rails up X 1. Client placed on mb9 continuous cardiac and pulse oximetry monitoring. NIBP monitoring applied. 16:32 No provider procedures requiring assistance completed. mb9 16:40 Test, Urine Sent. mb9 16:40 Urinalysis w/ reflexes Sent. mb9 16:40 CBC with Diff Sent. mb9 16:40 CMP Sent. mb9 16:40 Lipase Sent. mb9 16:40 Inserted saline lock: 22 gauge in right antecubital area, using aseptic technique. mb9 Blood collected. 18:36 CT Abd/Pelvis - IV Contrast Only In Process Unspecified. EDMS 19:33 IV discontinued, intact, bleeding controlled, No redness/swelling at site. Pressure mb9 dressing applied. Administered Medications: 18:28 Drug: diphenhydrAMINE IVP 25 mg Route: IVP; Site: right antecubital; mb9 19:15 Follow up: Response: No adverse reaction mb9 19:15 Drug: Potassium PO Effervescent Tablet 50 mEq Route: PO; mb9 Medication: 16:31 VIS not applicable for this client. mb9 Outcome: 19:26 Discharge ordered by . sb4 19:33 Discharged to home ambulatory. mb9 19:33 Condition: stable 19:33 Discharge instructions given to patient, Instructed on discharge instructions, follow up and referral plans. Demonstrated understanding of instructions, follow-up care, medications, Prescriptions given X 2. 19:34 Patient left the ED. mb9 Signatures: Dispatcher [employer] EDMS Swetha Valdivia rg4 Larissa Charles PA-C PA-C sb4 Breneman, Mary Beth, RN RN mb9
[2022-12-21 20:31] VITALS: TEMP 99.1; O2SAT 100
[2022-12-21 20:33] VITALS: BP 143/93
== END 2022-12-21 19:34 | disposition home or self-care (01) ==
LOC: ER 16:14
DX: R10.84 Generalized abdominal pain (principal); R19.7 Diarrhea, unspecified; Z91.040 Latex allergy status; Z91.048 Other nonmedicinal substance allergy status
CPT/HCPCS: 85025; 81001; 36415; 81025; 83690; 80053; 74177; 96374; 99284; Q9967; J1200